=== PATIENT | female | born 1960 | race Caucasian/White ===

== ENCOUNTER 2016-04-12 10:16 | Inpatient (IN) ==
[2016-04-12] MEDS ORDERED: SODIUM CHLORIDE 0.9% 1,000 ML IV STA (10:44)
[2016-04-12] MEDS ORDERED: ASPIRIN 325 MG TABLET PO STA (10:44)
--- NOTE | 2016-04-12 10:47 | EKG Report ---
Stationary ECG Study 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
[2016-04-12] MEDS ORDERED: ASPIRIN 325 MG TABLET ONE (10:50)
[2016-04-12 10:52] LABS: Basophils % 0.4 % (0.0-0.8); Eosinophils # 0.1 10*3/uL (0.0-0.87); Eosinophils % 0.8 % (0.00-10.9); Hematocrit 40.4 VOL% (35.7-47.0); Hemoglobin 13.2 GM/DL (12.0-16.0); Immature Granulocytes % 0.3 %; Immature Granulocytes Absolute 0.03 #; Lymphocytes # 2.2 10*3/uL (1.4-4.0); Lymphocytes % 22.7 % (21.3-54.2); Mean Corpuscular HGB Conc 32.7 GM/DL (32-36); Mean Corpuscular Hemoglobin 30 PG (27-34); Mean Corpuscular Volume 91.4 FL (87-102); Mean Platelet Volume 11.1 FL (9.6-12.0); Monocytes # 0.4 10*3/uL (0.11-0.8); Monocytes % 4.4 % (1.7-12.7); Neutrophils # 6.9 10*3/uL (1.4-7.4); Neutrophils % 71.4 % (38.7-73.9); Platelet Count 227 T/CUMM (130-400); Red Blood Count 4.42 MC/CUMM (3.8-5.5); Red Cell Distribution Width 12.3 % (9.3-17.3); White Blood Count 9.7 T/CUMM (4-12)
--- NOTE | 2016-04-12 10:57 | CT Report ---
CT brain Indication: Headache Comparison: None available Technique: Axial CT imaging of the brain is performed without contrast with 3 mm increments. Findings: No evidence of hemorrhage, mass mass effect midline shift or acute infarct seen. The brain parenchyma attenuation and differentiation appears within normal limits. The ventricles and cisterns are normal in caliber. No cranial or skull base abnormality is identified. Impression: No evidence of abnormality demonstrated. PROCEDURE INTERPRETED AT [facility] DEPARTMENT OF RADIOLOGY Final Report Signed by: Dr. Boyd De Leon
--- NOTE | 2016-04-12 10:58 | Emergency Department Note ---
IPavan Meredith, am scribing for, and in the presence of, Juwan Rasheed MD 10: 43. Kathya Brooks James D, MD, personally performed the services described in this documentation, ascribed by Divina Browne in my presence, and it is both accurate and complete . 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 Pt reports having WV X 3 and states todays pain feels the same as before. Pt also reports some confusion and difficulty thinkin of what she is about to say. Mode of Arrival: Ambulatory Limitations: No Limitations Source: Patient, Family, Old Records Reviewed, RN Notes Reviewed Time Seen by Provider: 04/12/16 10:40 - History of Present Illness HPI Narrative: Pt is a 55 y/o white female reporting to the ED with c/o chest pain, shortness of breath, blurred vision, headache, and difficulty ambulating which onset 1 hour prior to arrival. Her pain is similar to past WV's. She denies any diaphoresis or dysuria. Family states that pt was at work and began to have confusion and "was talking out of her head". Pt is a CAD, WV, HLD, NIDDM, sleep apnea, diverticulitis, osteoporosis, and melanoma. Onset (ago): hour(s) Severity: similar to previous episodes Allergies/Adverse Reactions: Allergies Allergy/AdvReac Type Severity Reaction Status Date / Time nalbuphine [From Nubain] Allergy Severe ANAPHYLAXIS Verified 04/12/16 10:18 codeine AdvReac Intermediate Nausea Verified 04/12/16 10:18 Home Medications: Home Medications Medication Instructions Recorded Confirmed Type ARIPiprazole [Abilify] 15 mg PO DAILY 12/28/14 12/28/14 History Dextroamphetamine/Amphetamine 10 mg PO BID 12/28/14 12/28/14 History [Adderall 10 mg Tablet] Venlafaxine HCl [Effexor XR] 150 mg PO DAILY 12/28/14 12/28/14 History Atorvastatin [Lipitor] 40 mg PO BEDTIME #30 tablet 12/30/14 Rx Clopidogrel [Plavix] 75 mg PO DAILY #30 tablet 12/30/14 Rx Metoprolol Succinate Xl [Toprol Xl] 25 mg PO DAILY #30 tablet 12/30/14 Rx Omeprazole [Prilosec] 20 mg PO DAILY #30 capsule 12/30/14 Rx Review of System - Review of System 12 point system: reviewed and no additional remarkable complaints except as stated - Review of System Constitutional: Present: as per HPI. Absent: diaphoresis Eyes: Present: as per HPI, vision change (blurred) Respiratory: Present: as per HPI, other (SOB) Cardiovascular: Present: as per HPI, chest pain Genitourinary female: Present: as per HPI. Absent: dysuria Neurological: Present: as per HPI, headache, confusion, abnormal gait ( difficulty ambulating) Medical,Surgical,& Family Hx - Medical History Cardio: History of: CAD, WV (in 2006) Neurology: No history of: Seizures HEENT: History of: Eye Problem (WEAR GLASSES) Endocrine: History of: Diabetes Mellitus (NIDDM), Dyslipidemia Respiratory: History of: Obstructive Sleep Apnea Gastrointestinal: History of: Diverticulitis/ Diverticulosis Musculoskeletal: History of: Osteoporosis Other: History of: Miscellaneous Medical Problems (stage 1 melanoma lt arm) - Surgical History Cardiac Surgeries: Sugical HX of: Cardiac Catheterization, Cardiac Surgery ( cabg in 2006) Thoracic Surgeries: Patient denies;: Organ Transplant Abdominal Surgeries: Surgical HX of: Colonoscopy (2011) - Family History Family History: Reports;: Family Cancer (FATHER-BLADDER, KIDNEY, LUNG, AND MELONOMA), Family Diabetes (GRANDFATHERS), Family Heart Disease (FATHER, MOTHER , GRANDPARENTS), Family Hypertension (FATHER, MOTHER, GRANDPARENTS), Family Psychiatric Problems (MOTHER- DEPRESSION) Denies;: Family Stroke (FATHER) - Social History Smoking Status: Never smoker Frequency of Alcohol Use: None Type of Drug Use: None Exam Physical Examination: GENERAL: This is a well-nourished, well-developed white female in no apparent distress. VITAL SIGNS: Temperature: 97.4, Pulse: 67, Respirations: 17, Blood pressure: 120 /80, O2 Saturation: 98 HEENT: Head is normocephalic and atraumatic. Pupils are equally round and reactive to light. Extraocular movement are intact. Oropharynx is benign with moist mucous membranes. NECK: Neck is soft and supple without tenderness. There are no masses. There is no lymphadenopathy. LUNGS: Lungs are clear to auscultation bilaterally. Chest rises symmetrically. There is no chest wall tenderness. CV: Heart is regular rate and rhythm without murmurs, rubs, or gallops. ABDOMEN: Abdomen is soft, non-tender to palpation. There are no abnormal masses palpated. There is no organomegaly. Bowel sounds are present and active. SKIN: Skin is warm and dry. No rash. EXTREMITIES: Patient has full range of motion without tenderness. There is no pedal edema. NEUROLOGIC: Awake, alert, and oriented x4. Cranial nerves II through XII are grossly intact. There are no motorsensory deficits. PSYCHIATRIC: Normal affect. Normal mood. Vital Signs: Vital Signs Temperature 97.4 F L 04/12/16 10:18 Pulse Rate 74 04/12/16 14:30 Respiratory Rate 20 04/12/16 14:30 Blood Pressure 115/79 04/12/16 14:30 O2 Sat by Pulse Oximetry 99 04/12/16 14:30 Course - Consultations Consultation #1: Discussed with Dr. Musa. Patient will be seen in the emergency department. Time: 14:02 Consultation #2: Discussed with hospitalist. Patient will be admitted to their service. Time: 15:28 Results - Labs CBC & BMP: 04/12/16 10:43 04/12/16 10:43 Lab Results: I have reviewed the patients labs Labs: Laboratory Tests 04/12/16 04/12/16 04/12/16 10:43 10:43 10:43 WBC 9.7 RBC 4.42 Hgb 13.2 Hct 40.4 Plt Count 227 INR 1.0 PT Patient/Control Mix 10.7 Circ Anticoag PTT 23.2 D Sodium 139 Potassium 4.0 Chloride 105 Carbon Dioxide 25 BUN 9 Creatinine 1.00 Glucose 247 H AST 44 H Alkaline Phosphatase 121 H Troponin I Globulin 4.2 H Albumin/Globulin Ratio 0.8 L Laboratory Tests 04/12/16 10:43 Troponin I < 0.015 Laboratory Tests 04/12/16 10:43 Urine pH 5.0 Ur Specific [place] 1.010 Urine Glucose (UA) >=500 Urine Urobilinogen < 2.0 H Urine WBC 1 Ur Squamous Epith Cells Occasional Urine Mucus Occasional Laboratory Tests 04/12/16 10:43 Urine Opiates Screen Negative Ur Barbiturates Screen Negative Ur Phencyclidine Scrn Negative U Amphetamine/Methamph Positive H U Benzodiazepines Scrn Negative U Cocaine Metab Screen Negative U Cannabinoids Screen Negative - EKG EKG results: interpreted by ERMD - Impressions EKG: Normal sinus rhythm with a rate of 71, nonspecific ST-T wave changes, normal axis, low voltage QRS. - Diagnostic Findings Procedure: Chest x-ray: image reviewed by me, report reviewed by me (Previous sternotomy with borderline cardiac enlargement without overt decompensation or acute cardiopulmonary pathology radiographically. ), CT: image reviewed by me ( Head CT: No evidence of abnormality. ) Disposition Clinical Impression: Chest pain, Coronary artery disease Case discussed with: patient Condition: Stable
[2016-04-12 11:03] LABS: PT Patient Result 10.7 SECS; Partial Thromboplastin Time 23.2 SECS (0-40)
[2016-04-12 11:12] LABS: Albumin 3.6 G/DL (3.4-5.0); Bilirubin,Total 0.5 MG/DL (0.2-1.0); Calcium 8.7 MG/DL (8.5-10.1); Osmolality,Calculated 283.5 MOS/KG (273-304); Total Protein 7.8 G/DL (6.4-8.3)
[2016-04-12 11:21] LABS: Apearance,Urine CLEAR (Clear); Bilirubin,Urine Negative (Negative); Blood, Urine Negative (Negative); Glucose,Urine (UA) >=500 mg/dL (Negative); Ketones,Urine Negative (Negative); Mucus,Urine Occasional /LPF (Occasional); Nitrite,Urine Negative (Negative); Protein,Urine Negative; Squamous Epithelial Cell,Urine Occasional /HPF (0-10); Urine Color Yellow (Yellow); Urine Urobilinogen < 2.0 EU/DL (0.2-1.0); WBC,Urine 1 /HPF (0-6)
[2016-04-12 11:23] LABS: Barbiturates Screen,Urine Negative (Negative); Benzodiazepines Screen,Urine Negative (Negative); Cannabinoid Screen,Urine Negative (Negative); Opiate Screen,Urine Negative (Negative); Phencyclidine Screen,Urine Negative (Negative)
--- NOTE | 2016-04-12 13:40 | XRay Report ---
Exam: XR chest 1V portable Date: 04/12/2016 10:44 AM Indication: Chest pain Comparison: 12/29/2014 Technical: AP stretcher Findings: Previous sternotomy wires present. External cardiac leads are present. The heart is slightly accentuated. No obvious infiltrate or effusion. No pneumothorax. Mediastinum is intact Impression: 1. Previous sternotomy with borderline cardiac enlargement without overt decompensation or acute cardiopulmonary pathology radiographically PROCEDURE INTERPRETED AT [facility] DEPARTMENT OF RADIOLOGY Final Report Signed by: Dr. Basil White
--- NOTE | 2016-04-12 14:30 | EKG Report ---
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
--- NOTE | 2016-04-12 15:22 | EKG Report ---
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
[2016-04-12] MEDS ORDERED: ALUM/MAG/SIMETH/LIDO VISC 1:1 30 ML BOTTLE PO STA (15:35)
[2016-04-12] MEDS ORDERED: ALUM/MAG/SIMETH/LIDO VISC 1:1 30 ML BOTTLE PO ONE (15:41)
[2016-04-12] MEDS ORDERED: GLUCAGON 1 MG VIAL IM PRN (16:09)
[2016-04-12] MEDS ORDERED: DEXTROSE 50% 25 GM/50 ML VIAL IV PRN (16:09)
[2016-04-12] MEDS ORDERED: LABETALOL 20 MG/4 ML SYRINGE IV PRN (16:09)
--- NOTE | 2016-04-12 16:28 | CT Report ---
Exam: CT chest PE study The total DLP is 356 mGy*cm. Date: 04/12/2016 3:37 PM Indication: Shortness of breath Comparison: Prior chest CT 02/08/2015 Technical: Images were obtained from the thoracic inlet through the lung bases with 80 cc of Omnipaque 350 with axial and coronal imaging available for review. Findings: Pulmonary arteries: Pulmonary arteries are patent and well-opacified with no filling defects to suggest pulmonary emboli. Mediastinum/vessels/lymph nodes: Heart and great vessels appear unremarkable. There is no evidence of pericardial effusion. The aorta and great vessels appear widely patent. There is no adenopathy in the chest. Lungs: The lungs are clear. There is no pneumothorax or pleural effusion. There is no focal consolidation. No suspicious pulmonary nodules or masses are identified. Thyroid: Thyroid gland appears within normal limits. No acute abnormality is identified within the visualized upper abdomen. BONES: No acute or suspicious appearing osseous abnormalities are identified. Median sternotomy wiring is noted. Impression: No evidence of pulmonary emboli. No other acute abnormality in the chest or upper abdomen to explain patient's symptoms. PROCEDURE INTERPRETED AT [facility] DEPARTMENT OF RADIOLOGY Final Report Signed by: Charlie Anderson
--- NOTE | 2016-04-12 16:35 | Hospitalist History & Physical ---
History of Present Illness Chief complaint: room tilting History of present illness: Ms. Ferrer is a 55 year old female who had abrupt onset of intelligible but nonsensical speech and the feeling of the room tilting. She said she leaned to the left and felt weak. This happened at work. She started saying stuff about influenza A, out of context of the conversation. Her family brought her to the ER and report that she could not lift her left leg well when she got to ER and needed max assist on entering the ER. The patient describes the feeling of words not forming sentences like she wants them to. Her family says that for the last couple of days she has seemed to need time to compose her answers to questions. She has had some chest pain which is her baseline. She denies shortness of breath. She was seen by cards in ER because of the chest pain with history of CAD and CABG. Cath last year looked ok per Dr Gentile. Dr Smith recommended serial troponins, and will follow along with us. A/P: 1)weakness in right arm and left leg and word finding problems- brain MRI, carotids and echo. PT, OT, ST. On asa, statin. consult to neuro. 2)CAD- r/o DE with serial troponins. On lovenox at 1mg/kg q12 until ruled out. continue home meds. put on telemetry. PE ruled out. 3)DM- SSI for now, hold metformin 4)psych- continue antidepressants, abilify. 5)high cholesterol- LDL 100, continue statin. Home Medications Medication Instructions Recorded Confirmed Type ARIPiprazole [Abilify] 15 mg PO DAILY 12/28/14 12/28/14 History Dextroamphetamine/Amphetamine 10 mg PO BID 12/28/14 12/28/14 History [Adderall 10 mg Tablet] Venlafaxine HCl [Effexor XR] 150 mg PO DAILY 12/28/14 12/28/14 History Atorvastatin [Lipitor] 40 mg PO BEDTIME #30 tablet 12/30/14 Rx Clopidogrel [Plavix] 75 mg PO DAILY #30 tablet 12/30/14 Rx Metoprolol Succinate Xl [Toprol Xl] 25 mg PO DAILY #30 tablet 12/30/14 Rx Omeprazole [Prilosec] 20 mg PO DAILY #30 capsule 12/30/14 Rx Allergies Allergy/AdvReac Type Severity Reaction Status Date / Time nalbuphine [From Nubain] Allergy Severe ANAPHYLAXIS Verified 04/12/16 10:18 codeine AdvReac Intermediate Nausea Verified 04/12/16 10:18 Medical,Surgical,& Family Hx - Medical History Cardio: History of: CAD, [place] (in 2006) Neurology: No history of: Seizures HEENT: History of: Eye Problem (WEAR GLASSES) Endocrine: History of: Diabetes Mellitus (NIDDM), Dyslipidemia Respiratory: History of: Obstructive Sleep Apnea Gastrointestinal: History of: Diverticulitis/ Diverticulosis Musculoskeletal: History of: Osteoporosis Other: History of: Miscellaneous Medical Problems (stage 1 melanoma lt arm) - Surgical History Cardiac Surgeries: Sugical HX of: Cardiac Catheterization, Cardiac Surgery ( cabg in 2006) Thoracic Surgeries: Patient denies;: Organ Transplant Abdominal Surgeries: Surgical HX of: Colonoscopy (2011) - Family History Family History: Reports;: Family Cancer (FATHER-BLADDER, KIDNEY, LUNG, AND MELONOMA), Family Diabetes (GRANDFATHERS), Family Heart Disease (FATHER, MOTHER , GRANDPARENTS), Family Hypertension (FATHER, MOTHER, GRANDPARENTS), Family Psychiatric Problems (MOTHER- DEPRESSION) Denies;: Family Stroke (FATHER) - Social History Smoking Status: Former smoker (44years) Frequency of Alcohol Use: Rarely Type of Drug Use: None Marital Status: Functional capacity: independent ambulation 12 point system: reviewed and no additional remarkable complaints except as stated Exam - Constitutional Vitals: Period Temp Pulse Resp BP Sys/Steward Pulse Ox Last 24 Hr 97.4 F-97.4 F 68-87 17-20 114-136/71-89 96-100 General appearance: no acute distress, over weight - Head Head exam: Present: normocephalic, atraumatic - Respiratory Respiratory exam: Present: clear to auscultation bilaterally - Cardiovascular Cardiovascular exam: Present: regular rate and rhythm - GI/Abdominal GI/Abdominal exam: Present: normal bowel sounds, soft. Absent: tenderness - Extremities Exam Extremities exam: Absent: edema - Neurological Exam Neurological exam: Present: alert, oriented X3, CN II-XII intact, motor sensory deficit (right arm weak and left leg weak reflexes sluggish sensation intact.), other (clear word finding problems) - Skin Skin exam: Present: warm, dry Results - Labs CBC & BMP: 04/12/16 10:43 04/12/16 10:43 Lab Results: I have reviewed the past 24 hour labs
[2016-04-12 16:36] LABS: Risk Ratio 3.81; VLDL CHOLESTEROL 28.8 MG/DL
[2016-04-12] MEDS ORDERED: INFLUENZA VIRUS VACCINE 0.5 ML SYRINGE IM ONE (17:14)
[2016-04-12] MEDS: ENOXAPARIN 80 MG/0.8 ML SYRINGE SUBCUT SCH (18:07)
[2016-04-12] MEDS: PANTOPRAZOLE 40 MG TABLET PO SCH (18:07)
[2016-04-12] MEDS: NITROGLYCERIN 2% OINT 1 INCH/GM PACK TOP SCH (18:07)
[2016-04-12] MEDS: INSULIN LISPRO 100 UNIT/ML SUBCUT SCH ×2 (18:07→21:18)
[2016-04-12] MEDS ORDERED: AMPHETAMINE PO SCH (21:00)
[2016-04-12] MEDS ORDERED: DEXTROAMPHETAMINE PO SCH (21:00)
--- NOTE | 2016-04-12 21:43 | Ultrasound Report ---
Exam: US carotid duplex BI Date: 04/12/2016 4:12 PM Indication: Stroke Technique: Duplex scan of the bilateral carotid arteries using B-mode/grayscale imaging and Doppler spectral analysis and color flow. Findings: Right Flow velocities centimeters per second Common carotid artery: 68 Proximal ICA: 63 Distal ICA: 78 External carotid artery: 123 Vertebral artery: 46 with antegrade flow ICA/CCA ratio: 1.2 Measurements in millimeters Distal ICA: 4.7 Left: Flow velocities centimeters per second Common carotid artery: 70 Proximal ICA: 69 Distal ICA: 82 External carotid artery: 99 Vertebral artery: 49 with antegrade flow ICA/CCA ratio: 1.2 Measurements in millimeters Distal ICA: 5.0 No significant atherosclerotic plaque or luminal stenosis is evident within either internal carotid artery. Color flow is present in all visualized vessels with Doppler analysis. Impression: No significant atherosclerotic disease or luminal stenosis within either internal carotid artery by ultrasound criteria. Today studies were performed utilizing indirect NASCET criteria The ultrasound images were stored and captured PROCEDURE INTERPRETED AT [facility] DEPARTMENT OF RADIOLOGY Final Report Signed by: Charlie Anderson
[2016-04-12] MEDS: ROSUVASTATIN 20 MG TABLET PO SCH (21:46)
[2016-04-13] MEDS: NITROGLYCERIN 2% OINT 1 INCH/GM PACK TOP SCH ×4 (03:14→17:14)
[2016-04-13] MEDS: ENOXAPARIN 80 MG/0.8 ML SYRINGE SUBCUT SCH ×2 (05:33→15:42)
[2016-04-13] MEDS: INSULIN LISPRO 100 UNIT/ML SUBCUT SCH ×4 (07:53→21:32)
[2016-04-13 08:12] LABS: Basophils % 0.4 % (0.0-0.8); Eosinophils # 0.1 10*3/uL (0.0-0.87); Eosinophils % 1.2 % (0.00-10.9); Hematocrit 39.2 VOL% (35.7-47.0); Hemoglobin 12.8 GM/DL (12.0-16.0); Immature Granulocytes % 0.2 %; Immature Granulocytes Absolute 0.02 #; Lymphocytes # 2.1 10*3/uL (1.4-4.0); Lymphocytes % 24.9 % (21.3-54.2); Mean Corpuscular HGB Conc 32.7 GM/DL (32-36); Mean Corpuscular Hemoglobin 30 PG (27-34); Monocytes # 0.3 10*3/uL (0.11-0.8); Neutrophils # 5.8 10*3/uL (1.4-7.4); Neutrophils % 69.3 % (38.7-73.9); Platelet Count 228 T/CUMM (130-400); Red Blood Count 4.26 MC/CUMM (3.8-5.5); Red Cell Distribution Width 12.4 % (9.3-17.3); White Blood Count 8.3 T/CUMM (4-12)
--- NOTE | 2016-04-13 08:41 | Cardiology Consult Note ---
Foster Brooks Rachel, RN, am scribing for, and in the presence of, Barbara Gentile MD 08:41. Assessment and Plan (1) Chest pain Status: Acute Assessment and plan: EKG is nonspecific and does not have any acute findings. Troponin is negative 1 check. We will continue to monitor these. D-dimer and CT chest have been ordered to rule out PE. Nitropaste, Protonix, and GI cocktail have all been initiated. This could also be secondary to worsening CAD. Will consider further workup of this after neuro workup is complete and PE has been ruled out. Current Visit: Yes (2) Coronary artery disease Status: Chronic Assessment and plan: She underwent left heart cath December 2014 was noted to have severe single- vessel coronary artery disease with 100% ostial occlusion of the left anterior descending artery with patent SORENSEN to LAD graft, EF of 65% noted. Current Visit: Yes (3) Diabetes mellitus Status: Chronic Assessment and plan: Defer management to hospitalist. Current Visit: No (4) Hyperlipidemia Status: Chronic Assessment and plan: Lipid panel ordered. Current Visit: No (5) Hypertension Status: Chronic Assessment and plan: This is currently well controlled. Current Visit: No (6) Unsteady gait Status: Acute Assessment and plan: Neurology has been consulted. CT head is negative for acute abnormalities. Current Visit: Yes (7) Hx of CABG Status: Chronic Current Visit: Yes (8) Shortness of breath on exertion Status: Acute Assessment and plan: chest CT and D-dimer has been ordered to rule out PE. This could also be secondary to worsening CAD. Will consider further workup of this after neuro workup is complete and PE has been ruled out. Current Visit: Yes History of Present Illness - Data of Consult Patient: known to practice within the last 3 years Consult date: 04/12/16 Requesting Physician: Juwan Rasheed Primary care physician: Barbara Gentile - Consult Narrative Reason for consult: Chest pain and shortness of breath History of present illness: Ms. Ferrer is a 55 year old female with known coronary artery disease, routinely followed by Dr. Gentile. She presented to the ER today for further evaluation of weakness, confusion, gait instability, chest pain and shortness of breath. She has risk factors significant for coronary artery disease, diabetes, family history of CAD, hyperlipidemia, hypertension, obesity and sedentary lifestyle. Reports that she has never smoked in the past. She has a past medical history of anxiety. She has a surgical history of CABG in 2001 at [facility]. She underwent left heart cath December 2014 and was noted to have severe single-vessel coronary artery disease with 100% ostial occlusion of the left anterior descending artery with patent SORENSEN to LAD graft, EF of 65% noted. She has had an echo in December 2014 which revealed normal LV systolic function with a ejection fraction of 60%, grade 1 out of 4 diastolic dysfunction, trace pulmonic insufficiency and moderate concentric left ventricular hypertrophy. She was in her usual state of health until this morning when she reports that her "world was tilted." She tells me that her gait became unsteady and she became confused and unable to form sentences. Her coworkers came to assist her, sat her down and called her daughter to come pick her up. Her coworkers checked her blood sugar while waiting on her daughter to arrive and it was noted to be 359. While getting in the car she began to experience chest discomfort and shortness of breath. They then presented to the ER for further evaluation of this. She describes her chest pain as a constant, dull aching pain that radiates to her left arm. She rates this pain as a 7/10. This is also associated with shortness of breath, nausea and palpitations. Patient denies diaphoresis, fever, chills, abdominal pain, melena and lower extremity edema. She tells me that this pain feels different from her previous episodes of angina. Patient also reports that she has been compliant with all of her blood pressure medications. Of note, she does report a worsening dyspnea on exertion for the past week. She tells me that this is worse at night when she lays down. She also tells me that she has experienced mild episodes of chest discomfort for the past several days. She is unable to identify any aggravating or alleviating factors at this time. Patient was seen and examined in the ER. She is awake and alert and able to answer all questions appropriately. She seems to be back to her baseline neurologically. However, she continues to have gait instability. Patient is able to stand and bear weight. However, when trying to walk she becomes very unstable. Upon exam, no hemiplegia is noted. Patient has normal smile and facial expressions. Patient underwent head CT in the ER which was negative for any acute abnormalities. She continues to complain of chest pain and shortness of breath. She reports that this has been constant since approximately 9:15 this morning. This pain is not reproducible. Her cardiac biomarkers are negative at this time. We will continue to monitor these. Her EKG is nonspecific and does not reveal any acute findings. She is currently in sinus rhythm. CC: - Home Medications and Allergies Home Medications: Home Medications Medication Instructions Recorded Confirmed Type ARIPiprazole [Abilify] 15 mg PO DAILY 12/28/14 04/12/16 History Dextroamphetamine/Amphetamine 10 mg PO BID 12/28/14 04/12/16 History [Adderall 10 mg Tablet] Venlafaxine HCl [Effexor XR] 150 mg PO DAILY 12/28/14 04/12/16 History Atorvastatin [Lipitor] 40 mg PO BEDTIME #30 tablet 12/30/14 04/12/16 Rx Clopidogrel [Plavix] 75 mg PO DAILY #30 tablet 12/30/14 04/12/16 Rx Metoprolol Succinate Xl [Toprol Xl] 25 mg PO DAILY #30 tablet 12/30/14 04/12/16 Rx Omeprazole [Prilosec] 20 mg PO DAILY #30 capsule 12/30/14 04/12/16 Rx Benztropine Mesylate 1 mg PO BEDTIME 04/12/16 04/12/16 History Glimepiride 4 mg PO BIDAC 04/12/16 04/12/16 History Temazepam [Restoril] 15 mg PO BEDTIME 04/12/16 04/12/16 History Allergies/Adverse Reactions: Allergies Allergy/AdvReac Type Severity Reaction Status Date / Time nalbuphine [From Nubain] Allergy Severe ANAPHYLAXIS Verified 04/12/16 10:18 codeine AdvReac Intermediate Nausea Verified 04/12/16 10:18 - Constitutional Constitutional: Present: headache(s), weakness. Absent: chills, fever(s) - Cardiovascular Cardiovascular: Present: as per HPI, dyspnea on exertion, radiating jaw, neck or arm pain, lightheadedness, orthopnea, palpitations. Absent: claudication, diaphoresis - Respiratory Respiratory: Present: dyspnea on exertion. Absent: cough, wheezing, snoring, pain on inspiration, change in phlegm color - Gastrointestinal Gastrointestinal: Present: nausea. Absent: abdominal pain, change in bowel habits, coffee ground emesis, diarrhea, heartburn, hematemesis, hematochezia, loose stools, melena, vomiting - Neurological Neurological: Present: abnormal gait, confusion, disequilibrium, headache(s) Medical,Surgical,& Family Hx - Medical History Cardio: History of: CAD, Hypertension, ID (in 2006) Psychological: History of: Anxiety Disorders Neurology: No history of: Seizures HEENT: History of: Eye Problem (WEAR GLASSES) Endocrine: History of: Diabetes Mellitus (NIDDM), Dyslipidemia Respiratory: History of: Obstructive Sleep Apnea Gastrointestinal: History of: Diverticulitis/ Diverticulosis, GERD Musculoskeletal: History of: Osteoporosis Other: History of: Miscellaneous Medical Problems (stage 1 melanoma lt arm) - Surgical History Cardiac Surgeries: Sugical HX of: Cardiac Catheterization, Cardiac Surgery ( cabg in 2006) Thoracic Surgeries: Patient denies;: Organ Transplant Abdominal Surgeries: Surgical HX of: Colonoscopy (2011) - Family History Family History: Reports;: Family Cancer (FATHER-BLADDER, KIDNEY, LUNG, AND MELONOMA), Family Diabetes (GRANDFATHERS), Family Heart Disease (FATHER, MOTHER , GRANDPARENTS), Family Hypertension (FATHER, MOTHER, GRANDPARENTS), Family Psychiatric Problems (MOTHER- DEPRESSION) Denies;: Family Stroke (FATHER) - Social History Smoking Status: Never smoker Frequency of Alcohol Use: None Type of Drug Use: None Physical Examination Vital Signs Temp Pulse Resp BP Pulse Ox 97.4 F L 87 17 120/80 98 04/12/16 10:18 04/12/16 10:18 04/12/16 10:18 04/12/16 10:18 04/12/16 10:18 General: Present: No Apparent Distress Neck: Present: Supple Neck, Midline Trachea, No JVD/HJR, No Masses, No Bruit, No Lymphadenopathy, No Thyromegaly Cardiac: Present: Reg Rate and Rhythm, Regular Rate, Regular Rhythm, S1/S2, No Murmur. Absent: Gallop Lungs: Present: Normal Exam, Clear Ascult./Percussion, Normal Breath Sounds, No Wheeze, Rales, Rhonchi Abdomen: Present: Soft, Active Bowel Sounds, No Masses, No Pulsations/Bruits, Non-Tender. Absent: Firm, Distended Skin: Present: Clear. Absent: Rash, Suspicious Lesions, Ulceration Gait: Present: Poor Gait, Other (Unstable gait ) Extremities: Present: Normal Gait, No Clubbing, No Cyanosis, No Edema, Normal Upper Extr. Pulses, Normal Lower Extr. Pulses Result/EKG - Labs CBC & BMP: 04/13/16 08:02 04/12/16 10:43 Lab Results: I have reviewed the past 24 hour labs Labs: Laboratory Results - last 24 hr 04/12/16 04/12/16 04/12/16 10:43 10:43 10:43 WBC RBC Hgb Hct MCV MCH MCHC RDW Plt Count MPV Neut % (Auto) Lymph % (Auto) [place] % (Auto) Eos % (Auto) Baso % (Auto) Neut # (Auto) Lymph # (Auto) [place] # (Auto) Eos # (Auto) Baso # (Auto) Immature Gran % Nucleated RBC % Immature Gran # Nucleated RBCs # INR 1.0 PT Patient/Control Mix 10.7 Circ Anticoag PTT 23.2 D Sodium 139 Potassium 4.0 Chloride 105 Carbon Dioxide 25 Anion Gap 13.0 BUN 9 Creatinine 1.00 GFR Calculation 69 BUN/Creatinine Ratio 9.00 Glucose 247 H Calculated Osmolality 283.5 Calcium 8.7 Total Bilirubin 0.50 AST 44 H ALT 39 Alkaline Phosphatase 121 H Troponin I Total Protein 7.8 Albumin 3.6 Globulin 4.2 H Albumin/Globulin Ratio 0.8 L Urine Color Yellow Urine Appearance Clear Urine pH 5.0 Ur Specific [place] 1.010 Urine Protein Negative Urine Glucose (UA) >=500 Urine Ketones Negative Urine Blood Negative Urine Nitrate Negative Urine Bilirubin Negative Urine Urobilinogen < 2.0 H Urine Leukocytes Negative Urine WBC 1 Ur Squamous Epith Cells Occasional Urine Mucus Occasional Ur Culture Indicated? Not indicated Urine Opiates Screen Ur Barbiturates Screen Ur Phencyclidine Scrn U Amphetamine/Methamph U Benzodiazepines Scrn U Cocaine Metab Screen U Cannabinoids Screen 04/12/16 04/12/16 04/12/16 10:43 10:43 10:43 WBC 9.7 RBC 4.42 Hgb 13.2 Hct 40.4 MCV 91.4 MCH 30 MCHC 32.7 RDW 12.3 Plt Count 227 MPV 11.1 Neut % (Auto) 71.4 Lymph % (Auto) 22.7 [place] % (Auto) 4.4 Eos % (Auto) 0.8 Baso % (Auto) 0.4 Neut # (Auto) 6.9 Lymph # (Auto) 2.2 [place] # (Auto) 0.4 Eos # (Auto) 0.1 Baso # (Auto) 0.0 Immature Gran % 0.3 Nucleated RBC % 0.0 Immature Gran # 0.03 Nucleated RBCs # 0.00 INR PT Patient/Control Mix Circ Anticoag PTT Sodium Potassium Chloride Carbon Dioxide Anion Gap BUN Creatinine GFR Calculation BUN/Creatinine Ratio Glucose Calculated Osmolality Calcium Total Bilirubin AST ALT Alkaline Phosphatase Troponin I < 0.015 Total Protein Albumin Globulin Albumin/Globulin Ratio Urine Color Urine Appearance Urine pH Ur Specific [place] Urine Protein Urine Glucose (UA) Urine Ketones Urine Blood Urine Nitrate Urine Bilirubin Urine Urobilinogen Urine Leukocytes Urine WBC Ur Squamous Epith Cells Urine Mucus Ur Culture Indicated? Urine Opiates Screen Negative Ur Barbiturates Screen Negative Ur Phencyclidine Scrn Negative U Amphetamine/Methamph Positive H U Benzodiazepines Scrn Negative U Cocaine Metab Screen Negative U Cannabinoids Screen Negative - EKG EKG results: interpreted by me, sinus rhythm (With nonspecific ST segment and T- wave changes) ISeferino Jennifer, MD, personally performed the services described in this documentation, ascribed by Sommer Hutchison RN in my presence, and it is both accurate and complete [id number] .
[2016-04-13 08:48] LABS: Calcium 8.5 MG/DL (8.5-10.1); Osmolality,Calculated 284.8 MOS/KG (273-304); Potassium 4.1 MMOL/L (3.5-5.1)
[2016-04-13] MEDS: CLOPIDOGREL 75 MG TABLET PO SCH (09:48)
[2016-04-13] MEDS: VENLAFAXINE XR 75 MG CAPSULE PO SCH (09:48)
[2016-04-13] MEDS: ASPIRIN 325 MG TABLET PO SCH (09:48)
[2016-04-13] MEDS: ARIPiprazole 5 MG TABLET PO SCH (09:49)
[2016-04-13] MEDS: METOPROLOL SUCCINATE XL 25 MG TABLET PO SCH (09:49)
[2016-04-13] MEDS: PANTOPRAZOLE 40 MG TABLET PO SCH (09:49)
[2016-04-13] MEDS ORDERED: LORazepam 2 MG/1 ML VIAL IV ONE (10:30)
--- NOTE | 2016-04-13 12:18 | Magnetic Resonance Report ---
Exam: MR head/brain wo con Date: 04/13/2016 4:12 PM Comparison: CT brain 04/12/2016 Indication: Right arm left leg weakness Technical: 1.5 Malika magnet Axial T1 pre-and ADC, DWI, FLAIR, gradient echo and FSE T2 Sagittal T1 precontrast, FLAIR Coronal FSE T2 Contrast: 0 cc Dotarem Findings: Exam reveals no acute ADC/ diffusion imaging abnormality. The brainstem, cerebellum exhibit normal signal characteristics. The cerebral hemispheres exhibit normal signal characteristics. The corpus callosum is unremarkable. The ventricles are unremarkable. Normal flow voids in the vascular structures present. The seventh and eighth cranial nerves and cerebral pontine angles are intact. The pituitary gland, infundibulum and optic chiasm are intact. The paranasal sinuses exhibit normal signal characteristics. The mastoid sinuses are unremarkable. The globes and intra-and extraconal spaces are unremarkable. Impression: 1. No acute hemorrhage, infarction or mass effect. Normal MRI of the brain PROCEDURE INTERPRETED AT [facility] DEPARTMENT OF RADIOLOGY Final Report Signed by: Dr. Basil White
--- NOTE | 2016-04-13 13:37 | Discharge Summary ---
Hospital Course - Hospital Course Hospital Course: Mrs Rhodes had onset of altered speech, right arm and left leg weakness yesterday. Those symptoms have completely resolved this morning and she requests discharge. Her MRI and carotids showed no acute abnormality. This episode is consistent with TIA. She is on plavix, statin. Will add aspirin. consider anticoagulation. She will follow up with Dr Torres in the clinic as he is out of town today. She denies chest pain or shortness of breath. Dr Gentile will see her before she goes. She will see her PCP and DR Torres and Dr Gentile in follow up. Diagnosis - Discharge Diagnosis (1) TIA (transient ischemic attack) Status: Acute (2) Hypertension Status: Chronic (3) Hyperlipidemia Status: Chronic (4) Diabetes mellitus Status: Chronic (5) Dizziness Status: Acute (6) Chest pain Status: Acute (7) Coronary artery disease Status: Chronic (8) Unsteady gait Status: Acute (9) Hx of CABG Status: Chronic Specialty Discharge - Follow Up or Referrals Follow up with: Barbara Gentile MD [Physician] - Your, PCP [Other] - 1 Week Discharge Plan - Discharge Data Disposition: Disch To Home/Self Care Condition at Discharge: Stable Discharge Diet: diabetic diet, heart healthy Activity: resume usual activities as tolerated - Discharge Medications New Aspirin Chew Tab 81 mg PO DAILY #100 tablet Continue Venlafaxine HCl [Effexor XR] 150 mg PO DAILY ARIPiprazole [Abilify] 15 mg PO DAILY Dextroamphetamine/Amphetamine [Adderall 10 mg Tablet] 10 mg PO BID Atorvastatin [Lipitor] 40 mg PO BEDTIME #30 tablet Clopidogrel [Plavix] 75 mg PO DAILY #30 tablet Omeprazole [Prilosec] 20 mg PO DAILY #30 capsule Metoprolol Succinate Xl [Toprol Xl] 25 mg PO DAILY #30 tablet Glimepiride 4 mg PO BIDAC Benztropine Mesylate 1 mg PO BEDTIME Temazepam [Restoril] 15 mg PO BEDTIME - Follow Up or Referral - Forms/Instructions Exam - Constitutional Vitals: Period Temp Pulse Resp BP Sys/Steward Pulse Ox Last 24 Hr 96.8 F-98.6 F 61-82 16-20 106-136/57-81 92-98 General appearance: no acute distress, over weight - Head Head exam: Present: normocephalic, atraumatic - Eye Eye exam: Present: EOMI. Absent: scleral icterus - ENT ENT exam: Present: normal oropharynx - Neck Neck exam: Present: normal inspection - Respiratory Respiratory exam: Present: clear to auscultation bilaterally - Cardiovascular Cardiovascular exam: Present: regular rate and rhythm - GI/Abdominal GI/Abdominal exam: Present: normal bowel sounds, soft. Absent: tenderness - Extremities Exam Extremities exam: Absent: edema - Neurological Exam Neurological exam: Present: alert, oriented X3 (no speech or word finding problems this morning.), CN II-XII intact. Absent: motor sensory deficit - Skin Skin exam: Present: warm, dry Discharge Results Labs on day of discharge: Labs from last 24 hours 04/13/16 04/13/16 04/13/16 08:02 08:02 07:16 WBC 8.3 RBC 4.26 Hgb 12.8 Hct 39.2 MCV 92.0 MCH 30 MCHC 32.7 RDW 12.4 Plt Count 228 MPV 11.0 Neut % (Auto) 69.3 Lymph % (Auto) 24.9 [place] % (Auto) 4.0 Eos % (Auto) 1.2 Baso % (Auto) 0.4 Neut # (Auto) 5.8 Lymph # (Auto) 2.1 [place] # (Auto) 0.3 Eos # (Auto) 0.1 Baso # (Auto) 0.0 Immature Gran % 0.2 Nucleated RBC % 0.0 Immature Gran # 0.02 Nucleated RBCs # 0.00 Sodium 144 Potassium 4.1 Chloride 108 H Carbon Dioxide 28 Anion Gap 12.1 BUN 8 Creatinine 0.90 GFR Calculation 78 BUN/Creatinine Ratio 8.00 Glucose 125 H POC Glucose 117 H Calculated Osmolality 284.8 Calcium 8.5 Troponin I 04/12/16 04/12/16 04/12/16 21:19 20:20 17:48 WBC RBC Hgb Hct MCV MCH MCHC RDW Plt Count MPV Neut % (Auto) Lymph % (Auto) [place] % (Auto) Eos % (Auto) Baso % (Auto) Neut # (Auto) Lymph # (Auto) [place] # (Auto) Eos # (Auto) Baso # (Auto) Immature Gran % Nucleated RBC % Immature Gran # Nucleated RBCs # Sodium Potassium Chloride Carbon Dioxide Anion Gap BUN Creatinine GFR Calculation BUN/Creatinine Ratio Glucose POC Glucose 146 H Calculated Osmolality Calcium Troponin I < 0.015 < 0.015 04/12/16 17:43 WBC RBC Hgb Hct MCV MCH MCHC RDW Plt Count MPV Neut % (Auto) Lymph % (Auto) [place] % (Auto) Eos % (Auto) Baso % (Auto) Neut # (Auto) Lymph # (Auto) [place] # (Auto) Eos # (Auto) Baso # (Auto) Immature Gran % Nucleated RBC % Immature Gran # Nucleated RBCs # Sodium Potassium Chloride Carbon Dioxide Anion Gap BUN Creatinine GFR Calculation BUN/Creatinine Ratio Glucose POC Glucose 63 L Calculated Osmolality Calcium Troponin I DS: Provider Date of admission: 04/12/16 15:38 Primary care physician: . No PCP Attending physician on admission: Kady King MD Consults: 04/12/16 16:09 Consult to Case Mgmt/Social Srvs [CONS] Routine Reason for Case Mgmt/Social Srvs: Discharge Planning Consult to Occupational Therapy [CONS] Routine Reason for Occupational Therapy: Evaluate and Treat Consult Comment: Stroke Consult to Physical Therapy [CONS] Routine Reason for Physical Therapy: Evaluate and Treat Consult Comment: stroke 04/12/16 17:44 Consult to Pharmacy [CONS] Routine Reason for Pharmacy Consult: Adjust Meds Renal Funct Discharging clinician: Kady King MD
[2016-04-13 15:21] LABS: HIV Antigen/Antibody Result Nonreactive (Nonreactive)
--- NOTE | 2016-04-13 17:43 | Cardiology Progress Note ---
Ramon Brooks Vanessa RN, am scribing for, and in the presence of, Barbara Gentile MD 17:43. Assessment and Plan - Time spent with patient Time spent with patient: Less than 30 minutes (1) Chest pain Status: Acute Assessment and plan: EKG is nonspecific and does not have any acute findings. Serial troponin levels are negative. D-dimer negative and CT chest negative for PE or other finding to explain symptoms. This could also be secondary to worsening CAD. Consider further workup once neuro evaluation complete. Current Visit: Yes (2) Shortness of breath on exertion Status: Acute Assessment and plan: CT chest and D-dimer both negative. Possibly secondary to worsening of CAD. Consider further workup once neuro evaluation complete. Current Visit: Yes (3) Unsteady gait Status: Acute Assessment and plan: CT head and carotid doppler US negative for acute findings. MRI brain today and results pending. Awaiting neurology consult. Current Visit: Yes (4) Coronary artery disease Status: Chronic Assessment and plan: Left heart catheterization in December 2014 revealed severe single-vessel coronary artery disease with 100% ostial occlusion of the left anterior descending artery with patent SORENSEN graft to LAD. Ejection fraction 65%. Current Visit: Yes (5) Hx of CABG Status: Chronic Current Visit: Yes (6) Diabetes mellitus Status: Chronic Assessment and plan: Continue current plan of care. Defer management to hospitalist. Current Visit: No (7) Hyperlipidemia Status: Chronic Assessment and plan: Fasting lipid panel reviewed and is normal. Continue Crestor. Current Visit: No (8) Hypertension Status: Chronic Assessment and plan: Well controlled at this time. Continue current medication regimen. Current Visit: No Cardiology - PN: Subj Interval history: Sleeping soundly without acute distress noted. Family at bedside. MRI earlier this morning, and results are pending. Rouses easily and denies CP. Does say she is still somewhat short of breath and that it is slightly worsened with ambulation to bathroom and back to bed. SaO2 noted 92% on room air. Labs reviewed and are unremarkable. Sinus rhythm with heart rate 60's per tele monitoring. No overt arrhythmia or ectopy noted. Exam (Progress Note) - Constitutional Vitals: Period Temp Pulse Resp BP Sys/Steward Pulse Ox Last 24 Hr 96.8 F-98.6 F 61-82 16-20 106-136/57-81 92-98 Exam: General: Present: No Apparent Distress Neck: Present: Supple Neck, Midline Trachea, No JVD/HJR, No Masses, No Bruit, No Lymphadenopathy, No Thyromegaly Cardiac: Present: Reg Rate and Rhythm, Regular Rate, Regular Rhythm, S1/S2, No Murmur. Absent: Gallop Lungs: Present: Normal Exam, Clear Ascult./Percussion, Normal Breath Sounds, No Wheeze, Rales, Rhonchi Abdomen: Present: Soft, Active Bowel Sounds, No Masses, No Pulsations/Bruits, Non-Tender. Absent: Firm, Distended Skin: Present: Clear. Absent: Rash, Suspicious Lesions, Ulceration Gait: Present: Poor Gait, Other (Unstable gait ) Extremities: Present: Normal Gait, No Clubbing, No Cyanosis, No Edema, Normal Upper Extr. Pulses, Normal Lower Extr. Pulses Result/EKG - Labs CBC & BMP: 04/13/16 08:02 04/13/16 08:02 Lab Results: I have reviewed the past 24 hour labs Labs: Laboratory Results - last 24 hr 04/12/16 04/12/16 04/12/16 17:43 17:48 20:20 WBC RBC Hgb Hct MCV MCH MCHC RDW Plt Count MPV Neut % (Auto) Lymph % (Auto) [place] % (Auto) Eos % (Auto) Baso % (Auto) Neut # (Auto) Lymph # (Auto) [place] # (Auto) Eos # (Auto) Baso # (Auto) Immature Gran % Nucleated RBC % Immature Gran # Nucleated RBCs # Sodium Potassium Chloride Carbon Dioxide Anion Gap BUN Creatinine GFR Calculation BUN/Creatinine Ratio Glucose POC Glucose 63 L 146 H Calculated Osmolality Calcium Troponin I < 0.015 04/12/16 04/13/16 04/13/16 21:19 07:16 08:02 WBC 8.3 RBC 4.26 Hgb 12.8 Hct 39.2 MCV 92.0 MCH 30 MCHC 32.7 RDW 12.4 Plt Count 228 MPV 11.0 Neut % (Auto) 69.3 Lymph % (Auto) 24.9 [place] % (Auto) 4.0 Eos % (Auto) 1.2 Baso % (Auto) 0.4 Neut # (Auto) 5.8 Lymph # (Auto) 2.1 [place] # (Auto) 0.3 Eos # (Auto) 0.1 Baso # (Auto) 0.0 Immature Gran % 0.2 Nucleated RBC % 0.0 Immature Gran # 0.02 Nucleated RBCs # 0.00 Sodium Potassium Chloride Carbon Dioxide Anion Gap BUN Creatinine GFR Calculation BUN/Creatinine Ratio Glucose POC Glucose 117 H Calculated Osmolality Calcium Troponin I < 0.015 04/13/16 08:02 WBC RBC Hgb Hct MCV MCH MCHC RDW Plt Count MPV Neut % (Auto) Lymph % (Auto) [place] % (Auto) Eos % (Auto) Baso % (Auto) Neut # (Auto) Lymph # (Auto) [place] # (Auto) Eos # (Auto) Baso # (Auto) Immature Gran % Nucleated RBC % Immature Gran # Nucleated RBCs # Sodium 144 Potassium 4.1 Chloride 108 H Carbon Dioxide 28 Anion Gap 12.1 BUN 8 Creatinine 0.90 GFR Calculation 78 BUN/Creatinine Ratio 8.00 Glucose 125 H POC Glucose Calculated Osmolality 284.8 Calcium 8.5 Troponin I - EKG EKG results: interpreted by me, no acute changes EKG shows: sinus rhythm Specialty Discharge - Follow Up or Referrals Follow up with: Your, PCP [Other] - 1 Week Barbara Gentile MD [Physician] - I, Barbara Gentile MD, personally performed the services described in this documentation, ascribed by Kaela Navarro RN in my presence, and it is both accurate and complete [id number] .
--- NOTE | 2016-04-13 18:14 | Event Note ---
I reevaluated patient this evening because of reports that she was having some chest discomfort and shortness of breath that were reported after morning rounds. Her family is present. Collectively they acknowledge that for some time she has been experiencing exertional chest pressure that usually relieves with rest. She is still experiencing this with exertion around her hospital room. She feels short of breath while at rest in the bed as well, although on exam her lungs are clear and recent CT scan of the chest did not demonstrate any pathology. Oxygen saturations have been normal. I discussed the role, risks and benefits of cardiac catheterization with the patient and she agrees to proceed. We'll plan on doing this Saturday. I have discussed this with Dr. King.
[2016-04-13] MEDS: ACETAMINOPHEN 325 MG TABLET PO PRN (18:46)
[2016-04-13] MEDS: ROSUVASTATIN 20 MG TABLET PO SCH (21:32)
[2016-04-14] MEDS: NITROGLYCERIN 2% OINT 1 INCH/GM PACK TOP SCH ×5 (01:43→23:26)
[2016-04-14] MEDS: ENOXAPARIN 80 MG/0.8 ML SYRINGE SUBCUT SCH ×2 (05:25→17:05)
[2016-04-14] MEDS: INSULIN LISPRO 100 UNIT/ML SUBCUT SCH ×4 (08:06→20:38)
[2016-04-14] MEDS: ASPIRIN 325 MG TABLET PO SCH (09:43)
[2016-04-14] MEDS: ARIPiprazole 5 MG TABLET PO SCH (09:43)
[2016-04-14] MEDS: CLOPIDOGREL 75 MG TABLET PO SCH (09:44)
[2016-04-14] MEDS: METOPROLOL SUCCINATE XL 25 MG TABLET PO SCH (09:44)
[2016-04-14] MEDS: PANTOPRAZOLE 40 MG TABLET PO SCH (09:44)
[2016-04-14] MEDS: VENLAFAXINE XR 75 MG CAPSULE PO SCH (09:44)
--- NOTE | 2016-04-14 10:10 | Hospitalist Progress Note ---
Assessment and Plan (1) Chest pain Status: Acute Assessment and plan: Patient is being scheduled for a cardiac cath on Saturday, she currently has no CP , SOB Current Visit: No (2) Hypertension Status: Chronic Assessment and plan: stable Current Visit: No (3) Hyperlipidemia Status: Chronic Assessment and plan: on statins Current Visit: No (4) Diabetes mellitus Status: Chronic Assessment and plan: IaD2p-3.0 -continue current regime Current Visit: No (5) TIA (transient ischemic attack) Status: Acute Assessment and plan: continue on plavix and aspirin Current Visit: Yes (6) CAD (coronary artery disease) Status: Chronic Assessment and plan: s/p CABG -for Cardiac cath in am Current Visit: No Hospitalist: Subjective Interval history: Patient seen. She had some chest discomfort and SOB last night, CT chest was negative for PE, so Cardiology wants to take her for a cardiac cath on Saturday. Exam - Constitutional Vitals: Period Temp Pulse Resp BP Sys/Steward Pulse Ox Last 24 Hr 96.0 F-98.2 F 60-74 16-20 100-130/64-76 91-96 General appearance: no acute distress - Head Head exam: Present: normal inspection - Neck Neck exam: Present: normal inspection - Cardiovascular Cardiovascular exam: Present: regular rate and rhythm - GI/Abdominal GI/Abdominal exam: Present: normal bowel sounds - Extremities Exam Extremities exam: Present: normal inspection Results - Labs CBC & BMP: 04/13/16 08:02 04/13/16 08:02 Lab Results: I have reviewed the past 24 hour labs Specialty Discharge - Follow Up or Referrals Follow up with: Your, PCP [Other] - 1 Week Barbara Gentile MD [Physician] -
--- NOTE | 2016-04-14 17:01 | Cardiology Progress Note ---
Assessment and Plan (1) Chest pain Status: Acute Assessment and plan: EKG is nonspecific and does not have any acute findings. Serial troponin levels are negative. D-dimer negative and CT chest negative for PE or other finding to explain symptoms. This could also be secondary to worsening CAD. She continues to have exertional symptoms. We will schedule for left heart catheterization on Saturday. Current Visit: Yes (2) Shortness of breath on exertion Status: Acute Assessment and plan: CT chest and D-dimer both negative. Possibly secondary to worsening of CAD. Current Visit: Yes (3) Unsteady gait Status: Resolved Assessment and plan: CT head and carotid doppler US negative for acute findings. MRI brain unremarkable. Presumptive TIA. Current Visit: Yes (4) Coronary artery disease Status: Chronic Assessment and plan: Left heart catheterization in December 2014 revealed severe single-vessel coronary artery disease with 100% ostial occlusion of the left anterior descending artery with patent SORENSEN graft to LAD. Ejection fraction 65%. Current Visit: Yes (5) Hx of CABG Status: Chronic Current Visit: Yes (6) Diabetes mellitus Status: Chronic Assessment and plan: Continue current plan of care. Defer management to hospitalist. Current Visit: No (7) Hyperlipidemia Status: Chronic Assessment and plan: Fasting lipid panel reviewed and is normal. Continue Crestor. Current Visit: No (8) Hypertension Status: Chronic Assessment and plan: Well controlled at this time. Continue current medication regimen. Current Visit: No Cardiology - PN: Subj Interval history: Evening was uneventful. She denies any current chest pain or shortness of breath. She is not experiencing any symptoms as long as she "takes it easy" and is not exerting herself. She denies any new neurologic deficits. Exam (Progress Note) - Constitutional Vitals: Period Temp Pulse Resp BP Sys/Steward Pulse Ox Last 24 Hr 96.0 F-98.2 F 60-88 16-20 100-130/62-81 93-97 Exam: General appearance: normal weight, no acute distress - Head Head exam: Present: normal inspection, normocephalic, atraumatic. Absent: hematoma, laceration - Eye Eye exam: Present: EOMI. Absent: conjunctival injection, nystagmus, periorbital swelling, scleral icterus, laceration to eyelids Pupils: Present: PERRL. Absent: constricted, dilated, fixed, irregular, unequal - ENT ENT exam: Present: normal exam, normal external ear exam - Neck Neck exam: Present: normal inspection. Absent: lymphadenopathy, meningismus, tenderness, thyromegaly - Respiratory Respiratory exam: Present: clear to auscultation bilaterally. Absent: accessory muscle use, chest wall tenderness - Cardiovascular Cardiovascular exam: Present: regular rate and rhythm. Absent: carotid bruit, gallop, JVD, rubs - GI/Abdominal GI/Abdominal exam: Present: normal bowel sounds, soft. Absent: distended, firm , guarding, hernia, mass, tenderness, rebound. - Extremities Exam Extremities exam: Present: normal inspection, normal capillary refill. Absent: calf tenderness, edema - Back Exam Back exam: Present: normal inspection. Absent: muscle spasm, vertebral tenderness - Neurological Exam Neurological exam: Present: alert, oriented X3, grossly intact without resting or intention tremor - Psychiatric Psychiatric exam: Present: normal affect, normal mood - Skin Skin exam: Present: normal color, warm, dry, intact. Absent: cyanosis, diaphoretic, rash, urticaria Result/EKG - Labs CBC & BMP: 04/13/16 08:02 04/13/16 08:02 Lab Results: I have reviewed the past 24 hour labs Labs: Laboratory Results - last 24 hr 04/13/16 04/14/16 04/14/16 18:52 07:26 12:27 POC Glucose 176 H 128 H 116 H 04/14/16 16:22 POC Glucose 234 H Specialty Discharge - Follow Up or Referrals Follow up with: Your, PCP [Other] - 1 Week Barbara Gentile MD [Physician] -
[2016-04-14] MEDS: ROSUVASTATIN 20 MG TABLET PO SCH (20:37)
--- NOTE | 2016-04-14 23:16 | ECHO Report ---
Maria Fernanda Ferrer 04/13/2016 Exam Date: 10:45 Referring Physician: Ashley Chavez Technologist: JUNE Age: 55 Ht (in): Wt (lb): FExam Location: [facility] Gender: Echo [id number]: Weakness, Shortness of breath, ChestIndications:pain, unspecified, CAD with previous CABG BP: / HR: SinusRhythm: FairTechnical Quality: IMPRESSIONS Normal LV systolic function, ejection fraction 60%. Grade 2/4 diastolic dysfunction. No significant valvular pathology identified. MEASUREMENTS (Male / Female) Normal Values 2D ECHO LV Diastolic Diameter PLAX 3.9 cm 4.2 - 5.9 / 3.9 - 5.3 cm LV Systolic Diameter PLAX 2.6 cm LV Fractional Shortening PLAX 33.0 % IVS Diastolic Thickness 1.0 cm 0.6 - 1.0 / 0.6 - 0.9 cm LVPW Diastolic Thickness 1.0 cm 0.6 - 1.0 / 0.6 - 0.9 cm RV Internal Dim ED PLAX 2.4 cm Aortic Root Diameter 3.2 cm LA Systolic Diameter LX 3.3 cm 3.0 - 4.0 / 2.7 - 3.8 cm FINDINGS Left Ventricle Normal left ventricular cavity size. Normal left ventricular wall thickness. Left ventricular ejection fraction is estimated at 60 %. Right Ventricle Mildly increased right ventricular size. Right Atrium Normal right atrial size. Left Atrium The left atrium is normal in size. Mitral Valve Morphologically normal mitral valve without significant stenosis or prolapse. There is no mitral regurgitation. Aortic Valve Morphologically normal aortic valve without significant sclerosis or stenosis. There is no aortic regurgitation. Tricuspid Valve Morphologically normal tricuspid valve without significant stenosis or regurgitation. Pulmonary artery systolic pressure is normal. Pulmonic Valve Morphologically normal pulmonic valve without significant stenosis. There is no pulmonic regurgitation. Pericardium Normal pericardium without effusion. Aorta Normal ascending aorta dimension. Barbara Gentile MD (Electronically Signed) 14 April 2016 Final Date: 23:14
[2016-04-15 04:57] LABS: Basophils % 0.5 % (0.0-0.8); Eosinophils # 0.1 10*3/uL (0.0-0.87); Eosinophils % 1.5 % (0.00-10.9); Hematocrit 37.8 VOL% (35.7-47.0); Hemoglobin 12.8 GM/DL (12.0-16.0); Immature Granulocytes % 0.2 %; Immature Granulocytes Absolute 0.02 #; Lymphocytes # 2.7 10*3/uL (1.4-4.0); Mean Corpuscular HGB Conc 33.9 GM/DL (32-36); Mean Corpuscular Hemoglobin 30 PG (27-34); Mean Corpuscular Volume 89.6 FL (87-102); Mean Platelet Volume 11.4 FL (9.6-12.0); Monocytes # 0.5 10*3/uL (0.11-0.8); Monocytes % 5.8 % (1.7-12.7); Neutrophils # 5.5 10*3/uL (1.4-7.4); Platelet Count 229 T/CUMM (130-400); Red Blood Count 4.22 MC/CUMM (3.8-5.5); Red Cell Distribution Width 12.3 % (9.3-17.3); White Blood Count 8.9 T/CUMM (4-12)
[2016-04-15] MEDS: ENOXAPARIN 80 MG/0.8 ML SYRINGE SUBCUT SCH ×2 (05:13→15:55)
[2016-04-15] MEDS: NITROGLYCERIN 2% OINT 1 INCH/GM PACK TOP SCH ×3 (05:13→18:15)
[2016-04-15 05:37] LABS: Calcium 8.8 MG/DL (8.5-10.1); Magnesium 2.1 MG/DL (1.8-2.4); Osmolality,Calculated 287.8 MOS/KG (273-304); Potassium 4.3 MMOL/L (3.5-5.1)
[2016-04-15] MEDS: INSULIN LISPRO 100 UNIT/ML SUBCUT SCH ×4 (08:17→21:12)
[2016-04-15] MEDS: METOPROLOL SUCCINATE XL 25 MG TABLET PO SCH (08:50)
[2016-04-15] MEDS: ARIPiprazole 5 MG TABLET PO SCH (08:50)
[2016-04-15] MEDS: PANTOPRAZOLE 40 MG TABLET PO SCH (08:51)
[2016-04-15] MEDS: CLOPIDOGREL 75 MG TABLET PO SCH (08:51)
[2016-04-15] MEDS: ASPIRIN 325 MG TABLET PO SCH (08:51)
[2016-04-15] MEDS: VENLAFAXINE XR 75 MG CAPSULE PO SCH (08:51)
[2016-04-15] MEDS ORDERED: DIAZEPAM 5 MG TABLET PO ONE (10:40)
[2016-04-15] MEDS ORDERED: MAGNESIUM SULF RIDER 2 GM in PREMIX 1 EACH IV PRN (10:40)
[2016-04-15] MEDS ORDERED: POTASSIUM CHLORIDE RIDER 10 MEQ in PREMIX 1 EACH IV PRN (10:40)
[2016-04-15] MEDS ORDERED: diphenhydrAMINE CAP 25 MG CAPSULE PO ONE (10:40)
--- NOTE | 2016-04-15 10:40 | Cardiology Progress Note ---
Assessment and Plan (1) Chest pain Status: Acute Assessment and plan: EKG is nonspecific and does not have any acute findings. Serial troponin levels are negative. D-dimer negative and CT chest negative for PE or other finding to explain symptoms. This could also be secondary to worsening CAD. She continues to have exertional symptoms. We will schedule for left heart catheterization on Saturday. Current Visit: Yes (2) Shortness of breath on exertion Status: Acute Assessment and plan: CT chest and D-dimer both negative. Possibly secondary to worsening of CAD. Current Visit: Yes (3) Unsteady gait Status: Resolved Assessment and plan: CT head and carotid doppler US negative for acute findings. MRI brain unremarkable. Presumptive TIA. Current Visit: Yes (4) Coronary artery disease Status: Chronic Assessment and plan: Left heart catheterization in December 2014 revealed severe single-vessel coronary artery disease with 100% ostial occlusion of the left anterior descending artery with patent SORENSEN graft to LAD. Ejection fraction 65%. Current Visit: Yes (5) Hx of CABG Status: Chronic Current Visit: Yes (6) Diabetes mellitus Status: Chronic Assessment and plan: Continue current plan of care. Defer management to hospitalist. Current Visit: No (7) Hyperlipidemia Status: Chronic Assessment and plan: Fasting lipid panel reviewed and is normal. Continue Crestor. Current Visit: No (8) Hypertension Status: Chronic Assessment and plan: Well controlled at this time. Continue current medication regimen. Current Visit: No Cardiology - PN: Subj Interval history: This is a patient mind with known coronary artery disease who is admitted to the hospital with what appears to have been a transient ischemic attack interfering with her proprioception and gait stability. The symptoms have since resolved. However, she also complains of exertional chest discomfort and shortness of breath predictably. She is scheduled for heart catheterization tomorrow. Her symptoms overall unchanged, she continues to have exertional chest discomfort and shortness of breath but is able to perform ADLs in the room without significant symptoms. Exam (Progress Note) - Constitutional Vitals: Period Temp Pulse Resp BP Sys/Steward Pulse Ox Last 24 Hr 96.3 F-97.5 F 73-88 16-20 99-119/59-81 93-97 Exam: General appearance: normal weight, no acute distress - Head Head exam: Present: normal inspection, normocephalic, atraumatic. Absent: hematoma, laceration - Eye Eye exam: Present: EOMI. Absent: conjunctival injection, nystagmus, periorbital swelling, scleral icterus, laceration to eyelids Pupils: Present: PERRL. Absent: constricted, dilated, fixed, irregular, unequal - ENT ENT exam: Present: normal exam, normal external ear exam - Neck Neck exam: Present: normal inspection. Absent: lymphadenopathy, meningismus, tenderness, thyromegaly - Respiratory Respiratory exam: Present: clear to auscultation bilaterally. Absent: accessory muscle use, chest wall tenderness - Cardiovascular Cardiovascular exam: Present: regular rate and rhythm. Absent: carotid bruit, gallop, JVD, rubs - GI/Abdominal GI/Abdominal exam: Present: normal bowel sounds, soft. Absent: distended, firm , guarding, hernia, mass, tenderness, rebound. - Extremities Exam Extremities exam: Present: normal inspection, normal capillary refill. Absent: calf tenderness, edema - Back Exam Back exam: Present: normal inspection. Absent: muscle spasm, vertebral tenderness - Neurological Exam Neurological exam: Present: alert, oriented X3, grossly intact without resting or intention tremor - Psychiatric Psychiatric exam: Present: normal affect, normal mood - Skin Skin exam: Present: normal color, warm, dry, intact. Absent: cyanosis, diaphoretic, rash, urticaria Result/EKG - Labs CBC & BMP: 04/15/16 04:33 04/15/16 04:33 Lab Results: I have reviewed the past 24 hour labs Labs: Laboratory Results - last 24 hr 04/14/16 04/14/16 04/14/16 12:27 16:22 19:15 WBC RBC Hgb Hct MCV MCH MCHC RDW Plt Count MPV Neut % (Auto) Lymph % (Auto) [place] % (Auto) Eos % (Auto) Baso % (Auto) Neut # (Auto) Lymph # (Auto) [place] # (Auto) Eos # (Auto) Baso # (Auto) Immature Gran % Nucleated RBC % Immature Gran # Nucleated RBCs # Sodium Potassium Chloride Carbon Dioxide Anion Gap BUN Creatinine GFR Calculation BUN/Creatinine Ratio Glucose POC Glucose 116 H 234 H 183 H Calculated Osmolality Calcium Magnesium 04/15/16 04/15/16 04/15/16 04:33 04:33 07:51 WBC 8.9 RBC 4.22 Hgb 12.8 Hct 37.8 MCV 89.6 MCH 30 MCHC 33.9 RDW 12.3 Plt Count 229 MPV 11.4 Neut % (Auto) 62.0 Lymph % (Auto) 30.0 [place] % (Auto) 5.8 Eos % (Auto) 1.5 Baso % (Auto) 0.5 Neut # (Auto) 5.5 Lymph # (Auto) 2.7 [place] # (Auto) 0.5 Eos # (Auto) 0.1 Baso # (Auto) 0.0 Immature Gran % 0.2 Nucleated RBC % 0.0 Immature Gran # 0.02 Nucleated RBCs # 0.00 Sodium 144 Potassium 4.3 Chloride 107 Carbon Dioxide 26 Anion Gap 15.3 H BUN 10 Creatinine 1.00 GFR Calculation 69 BUN/Creatinine Ratio 10.00 Glucose 150 H POC Glucose 140 H Calculated Osmolality 287.8 Calcium 8.8 Magnesium 2.1 Specialty Discharge - Follow Up or Referrals Follow up with: Your, PCP [Other] - 1 Week Barbara Gentile MD [Physician] -
--- NOTE | 2016-04-15 13:49 | Hospitalist Progress Note ---
Assessment and Plan (1) Chest pain Status: Acute Assessment and plan: Patient is being scheduled for a cardiac cath in am she currently has no CP, SOB Plan follow Cardiology's recommendations Current Visit: No (2) Hypertension Status: Chronic Assessment and plan: stable Current Visit: No (3) Hyperlipidemia Status: Chronic Assessment and plan: on statins Current Visit: No (4) Diabetes mellitus Status: Chronic Assessment and plan: [id number]-3.0 -continue current regime Current Visit: No (5) TIA (transient ischemic attack) Status: Acute Assessment and plan: continue on plavix and aspirin Current Visit: Yes (6) CAD (coronary artery disease) Status: Chronic Assessment and plan: s/p CABG -for Cardiac cath in am Current Visit: No Hospitalist: Subjective Interval history: Patient seen. no new complaints. She is scheduled for a cardiac cath in am Exam - Constitutional Vitals: Period Temp Pulse Resp BP Sys/Steward Pulse Ox Last 24 Hr 96.3 F-97.5 F 73-88 16-20 99-120/59-73 93-97 General appearance: no acute distress - Head Head exam: Present: normal inspection - Respiratory Respiratory exam: Present: clear to auscultation bilaterally - Cardiovascular Cardiovascular exam: Present: regular rate and rhythm - GI/Abdominal GI/Abdominal exam: Present: normal bowel sounds - Extremities Exam Extremities exam: Present: normal inspection Results - Labs CBC & BMP: 04/15/16 04:33 04/15/16 04:33 Lab Results: I have reviewed the past 24 hour labs Specialty Discharge - Follow Up or Referrals Follow up with: Your, PCP [Other] - 1 Week Barbara Gentile MD [Physician] -
[2016-04-15] MEDS: SODIUM CHLORIDE 0.45% 1,000 ML IV SCH ×3 (15:55→23:49)
--- NOTE | 2016-04-15 16:40 | History and Physical Update ---
Sedation H&P Update - History and Physical H&P was reviewed, the patient examined and there: are no changes in the patients condition since last H&P was completed. - Dictation Physical: refer to scanned H&P - Physical Exam Mental Status: alert and oriented Heart: regular rate and rhythm Lung: clear to auscultation Abdomen: within normal limits Vitals: within normal limits - Sedation Plan for Sedation: moderate Patient Consent: Procedure disscussed with patient and patinet has consented., Risks and benefits were discussed with patient,including infection,, bleeding, injury to surrounding structures, seizure, temporary nerve, Patient understands and accepts potential risks/benefits and agrees to, proceed. ASA Class: IV Airway Assessment: Class I: Soft palate, uvula, fauces, pillars visible
[2016-04-15] MEDS: ROSUVASTATIN 20 MG TABLET PO SCH (21:11)
[2016-04-15] MEDS: ACETAMINOPHEN 325 MG TABLET PO PRN (23:50)
[2016-04-16] MEDS: NITROGLYCERIN 2% OINT 1 INCH/GM PACK TOP SCH ×3 (00:17→17:21)
[2016-04-16] MEDS: SODIUM CHLORIDE 0.45% 1,000 ML IV SCH ×4 (04:30→23:41)
[2016-04-16] MEDS: ENOXAPARIN 80 MG/0.8 ML SYRINGE SUBCUT SCH ×2 (05:29→17:21)
[2016-04-16 06:12] LABS: Basophils % 0.5 % (0.0-0.8); Eosinophils # 0.1 10*3/uL (0.0-0.87); Eosinophils % 1.5 % (0.00-10.9); Hematocrit 37.2 VOL% (35.7-47.0); Hemoglobin 12.6 GM/DL (12.0-16.0); Immature Granulocytes % 0.4 %; Immature Granulocytes Absolute 0.03 #; Lymphocytes # 2.4 10*3/uL (1.4-4.0); Lymphocytes % 29.6 % (21.3-54.2); Mean Corpuscular HGB Conc 33.9 GM/DL (32-36); Mean Corpuscular Hemoglobin 30 PG (27-34); Mean Platelet Volume 11.4 FL (9.6-12.0); Monocytes # 0.4 10*3/uL (0.11-0.8); Monocytes % 5.1 % (1.7-12.7); Neutrophils # 5.1 10*3/uL (1.4-7.4); Neutrophils % 62.9 % (38.7-73.9); Platelet Count 218 T/CUMM (130-400); Red Blood Count 4.18 MC/CUMM (3.8-5.5); Red Cell Distribution Width 12.2 % (9.3-17.3); White Blood Count 8.2 T/CUMM (4-12)
[2016-04-16 06:50] LABS: Calcium 8.6 MG/DL (8.5-10.1); Magnesium 2.2 MG/DL (1.8-2.4); Potassium 4.2 MMOL/L (3.5-5.1)
[2016-04-16] MEDS: INSULIN LISPRO 100 UNIT/ML SUBCUT SCH ×4 (10:22→21:39)
[2016-04-16] MEDS: CLOPIDOGREL 75 MG TABLET PO SCH (10:22)
[2016-04-16] MEDS: METOPROLOL SUCCINATE XL 25 MG TABLET PO SCH (10:22)
[2016-04-16] MEDS: ASPIRIN 325 MG TABLET PO SCH (10:22)
--- NOTE | 2016-04-16 10:24 | Hospitalist Progress Note ---
Assessment and Plan (1) Chest pain Status: Acute Assessment and plan: For cardiac cath this am. Plan follow Cardiology's recommendations Current Visit: No (2) Hypertension Status: Chronic Assessment and plan: stable Current Visit: No (3) Hyperlipidemia Status: Chronic Assessment and plan: on statins Current Visit: No (4) Diabetes mellitus Status: Chronic Assessment and plan: [id number]-9.0 -continue current regime Current Visit: No (5) TIA (transient ischemic attack) Status: Acute Assessment and plan: continue on plavix and aspirin Current Visit: Yes (6) CAD (coronary artery disease) Status: Chronic Assessment and plan: s/p CABG -follow cardiac cath this am Current Visit: No Hospitalist: Subjective Interval history: Patient seen this am, no new complaints. She is going for a cardiac cath today. Exam - Constitutional Vitals: Period Temp Pulse Resp BP Sys/Steward Pulse Ox Last 24 Hr 96.7 F-97.6 F 66-77 16-20 102-123/65-70 92-97 General appearance: no acute distress - Respiratory Respiratory exam: Present: clear to auscultation bilaterally - Cardiovascular Cardiovascular exam: Present: regular rate and rhythm - GI/Abdominal GI/Abdominal exam: Present: normal bowel sounds - Extremities Exam Extremities exam: Present: normal inspection Results - Labs CBC & BMP: 04/16/16 05:44 04/16/16 05:44 Lab Results: I have reviewed the past 24 hour labs Specialty Discharge - Follow Up or Referrals Follow up with: Your, PCP [Other] - 1 Week Barbara Gentile MD [Physician] -
[2016-04-16] MEDS ORDERED: HEPARIN/NACL 0.9% 2 UNITS/ML 0 ML IV ONE (13:14)
[2016-04-16] MEDS ORDERED: LIDOCAINE 1% 20 ML VIAL ONE ×2 (13:14→14:40)
[2016-04-16] MEDS ORDERED: HEPARIN/NACL 0.9% 2 UNITS/ML 1,000 ML IV ONE (14:40)
[2016-04-16] MEDS ORDERED: SODIUM BICARBONATE 2.4 MEQ/5 ML VIAL ONE (14:40)
[2016-04-16] MEDS ORDERED: DIAZEPAM 5 MG TABLET ONE (14:46)
[2016-04-16] MEDS ORDERED: diphenhydrAMINE CAP 25 MG CAPSULE ONE (14:47)
[2016-04-16] MEDS ORDERED: MIDAZOLAM 2 MG/2 ML VIAL ONE (15:10)
[2016-04-16] MEDS ORDERED: fentaNYL 100 MCG/2 ML VIAL ONE (15:11)
--- NOTE | 2016-04-16 15:24 | Event Note ---
Patient gone for cardiac cath
[2016-04-16] MEDS ORDERED: NITROGLYCERIN SL 0.4 MG TABLET SL PRN (16:02)
[2016-04-16] MEDS ORDERED: MORPHINE 2 MG/1 ML SYRINGE IV PRN (16:02)
[2016-04-16] MEDS ORDERED: ONDANSETRON 4 MG/2 ML VIAL IV PRN (16:02)
--- NOTE | 2016-04-16 16:15 | Cardiology Operative Report ---
Date of Procedure:: 04/16/16 Pre-op diagnosis: coronary artery disease, angina Post-op diagnosis: other (stable CAD with 100% occluded LAD, patent SORENSEN to LAD) Procedure: 1. Selective left and right coronary angiography. 2. Left heart catheterization with left ventriculogram. 3. Right iliac angiography to rule out vascular complications. 4. Left internal mammary artery bypass graft angiography. 5. Application Mynx hemostasis device to the right femoral arteriotomy site. Impression: 1. Stable coronary artery disease with 100% ostially occluded LAD, patent SORENSEN to LAD. [place] LAD is a small vessel. 2. Right dominant coronary arteries. 3. Ejection fraction 55%. 4. Angiographically normal right iliac artery without evidence of vascular complications. Plan: 1. Medical management. 2. Noncardiac workup of symptoms. Equipment: Diagnostic 6 Samoan JL4, JR4, pigtail catheters. Hemodynamics: Aortic pressure 108/66 mmHg, left ventricular pressure 104/3 mmHg, LVEDP to mmHg Sedation: Versed 2 mg, fentanyl 50 g Procedure: After informed consent was obtained the patient was prepped and draped in sterile fashion. The right groin was infiltrated with 1% lidocaine and the right femoral artery was accessed via modified Seldinger technique using a micropuncture needle and a 6 Samoan femoral arterial sheath was placed. All catheter exchanges were performed over a guidewire under fluoroscopic guidance. Diagnostic 6 Samoan JL4 and JR4 catheters were advanced to the left and right coronary arteries respectively and multiple cineangiograms were performed in varying degrees of obliquity and angulation. The Barbara catheter was then withdrawn and advanced into the left subclavian artery, where was used to intubate the left internal mammary artery bypass graft. Multiple cine angiograms were performed in varying degrees of obliquity angulation. Thereafter a pigtail catheter was advanced into the left ventricle where hemodynamics were obtained followed by left ventriculogram. At conclusion of the procedure right iliac angiography was performed to rule out vascular complications. A Mynx hemostasis device was unsuccessful applied to the right femoral artery on the site. Findings: 1. The left main artery is angiographically normal. 2. The left anterior descending artery his 100% occluded at the ostium. When visualized through the SORENSEN graft, it is recognized is a diffusely small vessel. 3. There is an intermediate ramus branch that is small, free of significant disease.. 4. The circumflex artery is a moderate sized system with luminal irregularities throughout, but no significant stenosis. 5. The right coronary artery is a dominant vessel, and free of significant disease. 6. Ejection fraction is 55 % with normal anterior, inferior and apical wall motion. 7. No significant mitral regurgitation. 8. No significant aortic stenosis. 9. The right iliac artery is angiographically normal without evidence of vascular complications. Contrast use: Omnipaque 73 cc Fluoro time: 3.8 minutes Complications: none Specimens removed: none Devices implanted: Mynx Anesthesia: moderate conscious sedation Surgeon / Physician: Barbara Gentile Dredge Pipeman: none (Kiko Azul) Estimated blood loss: minimal Specimens: none sent Condition: stable Disposition: floor
[2016-04-16] MEDS: VENLAFAXINE XR 75 MG CAPSULE PO SCH (17:00)
[2016-04-16] MEDS: ARIPiprazole 5 MG TABLET PO SCH (17:01)
[2016-04-16] MEDS: PANTOPRAZOLE 40 MG TABLET PO SCH (17:01)
[2016-04-16] MEDS: ACETAMINOPHEN 325 MG TABLET PO PRN (19:42)
[2016-04-16] MEDS: ROSUVASTATIN 20 MG TABLET PO SCH (21:39)
[2016-04-16] MEDS ORDERED: ALPRAZolam 0.25 MG TABLET PO PRN (22:21)
[2016-04-17] MEDS: ACETAMINOPHEN 325 MG TABLET PO PRN (00:25)
[2016-04-17] MEDS: NITROGLYCERIN 2% OINT 1 INCH/GM PACK TOP SCH ×3 (00:28→07:24)
[2016-04-17] MEDS: SODIUM CHLORIDE 0.45% 1,000 ML IV SCH (02:54)
[2016-04-17] MEDS: ENOXAPARIN 80 MG/0.8 ML SYRINGE SUBCUT SCH (05:01)
[2016-04-17 05:36] LABS: Basophils % 0.4 % (0.0-0.8); Eosinophils # 0.1 10*3/uL (0.0-0.87); Eosinophils % 1.6 % (0.00-10.9); Hematocrit 37.3 VOL% (35.7-47.0); Hemoglobin 12.3 GM/DL (12.0-16.0); Immature Granulocytes % 0.4 %; Immature Granulocytes Absolute 0.03 #; Lymphocytes # 2.3 10*3/uL (1.4-4.0); Lymphocytes % 28.8 % (21.3-54.2); Mean Corpuscular Hemoglobin 30 PG (27-34); Mean Corpuscular Volume 92.3 FL (87-102); Monocytes # 0.4 10*3/uL (0.11-0.8); Monocytes % 5.4 % (1.7-12.7); Neutrophils # 5.1 10*3/uL (1.4-7.4); Neutrophils % 63.4 % (38.7-73.9); Platelet Count 203 T/CUMM (130-400); Red Blood Count 4.04 MC/CUMM (3.8-5.5); Red Cell Distribution Width 12.3 % (9.3-17.3)
[2016-04-17 06:08] LABS: Calcium 8.1 MG/DL (8.5-10.1); Magnesium 2.1 MG/DL (1.8-2.4); Osmolality,Calculated 288.7 MOS/KG (273-304); Potassium 4.1 MMOL/L (3.5-5.1)
[2016-04-17 08:30] VITALS: BP 126/70
[2016-04-17] MEDS: CLOPIDOGREL 75 MG TABLET PO SCH (08:43)
[2016-04-17] MEDS: PANTOPRAZOLE 40 MG TABLET PO SCH (08:43)
[2016-04-17] MEDS: METOPROLOL SUCCINATE XL 25 MG TABLET PO SCH (08:43)
[2016-04-17] MEDS: VENLAFAXINE XR 75 MG CAPSULE PO SCH (08:43)
[2016-04-17] MEDS: ASPIRIN 325 MG TABLET PO SCH (08:43)
[2016-04-17] MEDS: ARIPiprazole 5 MG TABLET PO SCH (08:44)
--- NOTE | 2016-04-17 09:27 | Discharge Summary ---
<Katie Nobles - Last Filed: 04/17/16 09:18> Hospital Course - Hospital Course Hospital Course: Ms. Ferrer was admitted on 04/12 with abrupt onset of intelligible but nonsensical speech and feeling of the room tilting. She was weak on the left. She did require max assist when being brought to the ER. She had been seen in the ER b/c of chest pain and hx of CAD and CABG. She had a negative cath last year. She was admitted givne weakness in right arm and left leg and word findings issues. MRI brain, carotids, echo, PT/OT/ST were initiated. She was started on ASA and statin. Neurology was consulted. She was started on lovenox for vte prophylaxis. Dr. Gentile saw in consultation in the ED for chest pain. Her EKG was nonspecific. Her troponins were negative, and serials were as well. Chest CT and D-dimer were obtained to r/o PE. These were negative. On 04/13 , Dr. Gentile was called back to telemetry for reports of chest pain and shortness of breath. She did have dyspnea on exertion while walking in her room. Lungs were clear, and oxygen saturations were normal. Cath was discussed and she wished to proceed. On 04/16, she had a cath that showed a LAD 100%. EF 55%. These findings are stable. She has been cleared by Cardiology for discharge and will be discharged home today on appropriate medications and follow up. - Time spent with patient Time with patient DS: Greater than 30 minutes (due to plan, doc and med rec.) Diagnosis - Discharge Diagnosis (1) Chest pain Status: Acute (2) Shortness of breath on exertion Status: Acute (3) TIA (transient ischemic attack) Status: Acute (4) Coronary artery disease Status: Chronic (5) Hx of CABG Status: Chronic (6) Unsteady gait Status: Resolved (7) Hyperlipidemia Status: Chronic (8) Hypertension Status: Chronic Specialty Discharge - Follow Up or Referrals Follow up with: Your, PCP [Other] - 1 Week Barbara Gentile MD [Physician] - 1 Month Discharge Plan - Discharge Data Disposition: Disch To Home/Self Care - Discharge Medications New Aspirin Chew Tab 81 mg PO DAILY #100 tablet ALPRAZolam [Xanax] 0.25 mg PO Q8HR PRN #14 tablet PRN Reason: Anxiety Nitroglycerin Sl Tab [Nitrostat] 0.4 mg SL Q5M PRN #0 tablet PRN Reason: Chest Pain Continue Venlafaxine HCl [Effexor XR] 150 mg PO DAILY ARIPiprazole [Abilify] 15 mg PO DAILY Dextroamphetamine/Amphetamine [Adderall 10 mg Tablet] 10 mg PO BID Atorvastatin [Lipitor] 40 mg PO BEDTIME #30 tablet Clopidogrel [Plavix] 75 mg PO DAILY #30 tablet Omeprazole [Prilosec] 20 mg PO DAILY #30 capsule Metoprolol Succinate Xl [Toprol Xl] 25 mg PO DAILY #30 tablet Glimepiride 4 mg PO BIDAC Benztropine Mesylate 1 mg PO BEDTIME Temazepam [Restoril] 15 mg PO BEDTIME - Follow Up or Referral Follow Up: Your, PCP [Other] - 1 Week Barbara Gentile MD [Physician] - 1 Month - Forms/Instructions Instructions: Left Heart Catheterization (DC) Exam - Constitutional Vitals: Period Temp Pulse Resp BP Sys/Steward Pulse Ox Last 24 Hr 96.3 F-97.3 F 61-86 16-20 99-126/60-93 93-96 Discharge Results Labs on day of discharge: Labs from last 24 hours 04/17/16 04/17/16 04/17/16 07:49 05:24 05:24 WBC 8.0 RBC 4.04 Hgb 12.3 Hct 37.3 MCV 92.3 MCH 30 MCHC 33.0 RDW 12.3 Plt Count 203 MPV 11.0 Neut % (Auto) 63.4 Lymph % (Auto) 28.8 [place] % (Auto) 5.4 Eos % (Auto) 1.6 Baso % (Auto) 0.4 Neut # (Auto) 5.1 Lymph # (Auto) 2.3 [place] # (Auto) 0.4 Eos # (Auto) 0.1 Baso # (Auto) 0.0 Immature Gran % 0.4 Nucleated RBC % 0.0 Immature Gran # 0.03 Nucleated RBCs # 0.00 Sodium 145 Potassium 4.1 Chloride 109 H Carbon Dioxide 26 Anion Gap 14.1 BUN 8 Creatinine 0.90 GFR Calculation 80 BUN/Creatinine Ratio 8.00 Glucose 151 H POC Glucose 137 H Calculated Osmolality 288.7 Calcium 8.1 L Magnesium 2.1 04/16/16 04/16/1604/16/17 19:49 17:20 11:22 WBC RBC Hgb Hct MCV MCH MCHC RDW Plt Count MPV Neut % (Auto) Lymph % (Auto) [place] % (Auto) Eos % (Auto) Baso % (Auto) Neut # (Auto) Lymph # (Auto) [place] # (Auto) Eos # (Auto) Baso # (Auto) Immature Gran % Nucleated RBC % Immature Gran # Nucleated RBCs # Sodium Potassium Chloride Carbon Dioxide Anion Gap BUN Creatinine GFR Calculation BUN/Creatinine Ratio Glucose POC Glucose 229 H 90 158 H Calculated Osmolality Calcium Magnesium DS: Provider Date of admission: 04/12/16 15:38 Primary care physician: . No PCP Attending physician on admission: Kady King MD Consults: 04/12/16 16:09 Consult to Case Mgmt/Social Srvs [CONS] Routine Reason for Case Mgmt/Social Srvs: Discharge Planning Consult to Occupational Therapy [CONS] Routine Reason for Occupational Therapy: Evaluate and Treat Consult Comment: Stroke Consult to Physical Therapy [CONS] Routine Reason for Physical Therapy: Evaluate and Treat Consult Comment: stroke 04/12/16 17:44 Consult to Pharmacy [CONS] Routine Reason for Pharmacy Consult: Adjust Meds Renal Funct Discharging clinician: Katie Nobles NP Expected date of discharge: 04/17/16 <Jacquelin Hernandez - Last Filed: 04/17/16 10:48> Hospital Course - Time spent with patient Time with patient DS: Greater than 30 minutes Diagnosis - Discharge Diagnosis (1) Chest pain Status: Acute (2) Hypertension Status: Chronic (3) Hyperlipidemia Status: Chronic (4) Diabetes mellitus Status: Chronic (5) TIA (transient ischemic attack) Status: Acute (6) CAD (coronary artery disease) Status: Chronic Discharge Plan - Discharge Data Condition at Discharge: Stable Discharge Diet: heart healthy Activity: resume usual activities as tolerated - Forms/Instructions Additional Discharge Instructions: Follow with Cardiology as scheduled and PCP in 1week
== END 2016-04-17 12:20 | disposition home or self-care (01) | DRG 287 ==
LOC: N.ED 10:16 → N.EDINP 10:16 → OBSVTOIN 15:38 → SUATTDRO 15:38 → N.EDINP 16:45 → N.TELES 17:38
PROVIDERS: ADMIT Internal Medicine; ATTEND Internal Medicine

== ENCOUNTER 2020-01-27 13:10 | Observation (INO) ==
[2020-01-27 13:46] LABS: Basophils % 0.2 % (0.0-0.8); Hematocrit 40.6 VOL% (35.7-47.0); Hemoglobin 13.7 GM/DL (12.0-16.0); Immature Granulocytes % 0.5 %; Immature Granulocytes Absolute 0.05 #; Lymphocytes # 0.9 10*3/uL (1.4-4.0); Lymphocytes % 9.2 % (21.3-54.2); Mean Corpuscular HGB Conc 33.7 GM/DL (32-36); Mean Corpuscular Volume 88.1 FL (87-102); Mean Platelet Volume 10.7 FL (9.6-12.0); Monocytes % 3.9 % (1.7-12.7); Neutrophils % 86.2 % (38.7-73.9); Platelet Count 234 T/CUMM (130-400); Red Blood Count 4.61 MC/CUMM (3.8-5.5); Red Cell Distribution Width 13.1 % (9.3-17.3); White Blood Count 9.7 T/CUMM (4-12)
[2020-01-27] MEDS ORDERED: DEXAMETHASONE 4 MG/1 ML VIAL IV STA (13:47)
[2020-01-27] MEDS ORDERED: CETIRIZINE 10 MG TABLET PO STA (13:47)
[2020-01-27] MEDS ORDERED: FAMOTIDINE 20 MG/2 ML VIAL IV STA (13:47)
[2020-01-27 13:56] LABS: PT Patient Result 10.8 SECS (9.8-11.9)
[2020-01-27 14:05] LABS: Alanine Aminotransferase 25 U/L (13-56); Albumin 3.3 G/DL (3.4-5.0); Alkaline Phosphatase 109 U/L (45-117); Aspartate Amino Transferase 37 U/L (0-37); Blood Urea Nitrogen 8 MG/DL (7-18); Calcium 8.6 MG/DL (8.5-10.1); Estimated Glom Filtration Rate 68 ML/MIN; Glucose 143 MG/DL (74-106); Osmolality,Calculated 267.2 MOS/KG (273-304); Total Protein 7.4 G/DL (6.4-8.3)
[2020-01-27] MEDS ORDERED: POTASSIUM CHLORIDE 20 MEQ TABLET PO PRN (14:26)
[2020-01-27] MEDS ORDERED: DEXTROSE 50% 25 GM/50 ML VIAL IV PRN (14:26)
[2020-01-27] MEDS ORDERED: ACETAMINOPHEN 325 MG TABLET PO PRN (14:26)
[2020-01-27] MEDS ORDERED: ONDANSETRON 4 MG/2 ML VIAL IV PRN (14:26)
[2020-01-27] MEDS ORDERED: CETIRIZINE 10 MG TABLET PO PRN (14:26)
[2020-01-27] MEDS ORDERED: GLUCAGON 1 MG VIAL IM PRN (14:26)
[2020-01-27] MEDS ORDERED: guaiFENesin/DM ER 600-30 MG TABLET PO PRN (14:26)
[2020-01-27] MEDS ORDERED: ENOXAPARIN 40 MG/0.4 ML SYRINGE SUBCUT SCH (14:30)
[2020-01-27] MEDS ORDERED: AZITHROMYCIN INJ 500 MG in SODIUM CHLORIDE 0.9% 250 ML IV SCH (14:30)
[2020-01-27] MEDS ORDERED: NITROGLYCERIN SL 0.4 MG TABLET SL PRN (14:31)
[2020-01-27 15:10] LABS: Ferritin 201.4 ng/ml (8-252)
[2020-01-27 15:57] LABS: Risk Ratio 3.31; Thyroid Stimulating Hormone 0.483 uIU/ml (0.358-3.74); VLDL CHOLESTEROL 24.8 MG/DL
[2020-01-27] MEDS ORDERED: BENZONATATE 100 MG CAPSULE PO PRN (16:35)
[2020-01-27] MEDS: ZINC SULFATE 220 MG CAPSULE PO SCH (17:34)
[2020-01-27] MEDS: CHOLECALCIFEROL 1,000 UNIT TABLET PO SCH (17:34)
[2020-01-27] MEDS: ASCORBIC ACID 500 MG TABLET PO SCH ×2 (17:34→22:15)
[2020-01-27] MEDS: INSULIN LISPRO 100 UNIT/ML SUBCUT SCH ×2 (17:35→22:15)
[2020-01-27] MEDS ORDERED: CLOPIDOGREL 75 MG TABLET PO SCH (21:00)
[2020-01-27] MEDS ORDERED: METOPROLOL SUCCINATE XL 25 MG TABLET PO SCH (21:00)
[2020-01-27] MEDS ORDERED: DEXAMETHASONE 4 MG TABLET PO SCH (21:00)
[2020-01-27] MEDS ORDERED: ATORVASTATIN 40 MG TABLET PO SCH (21:00)
[2020-01-28 05:59] LABS: Basophils % 0.2 % (0.0-0.8); Hematocrit 40.4 VOL% (35.7-47.0); Hemoglobin 13.8 GM/DL (12.0-16.0); Immature Granulocytes % 0.4 %; Immature Granulocytes Absolute 0.05 #; Lymphocytes # 0.8 10*3/uL (1.4-4.0); Lymphocytes % 6.8 % (21.3-54.2); Mean Corpuscular HGB Conc 34.2 GM/DL (32-36); Mean Corpuscular Volume 88.4 FL (87-102); Mean Platelet Volume 11.2 FL (9.6-12.0); Monocytes % 2.5 % (1.7-12.7); Neutrophils % 90.1 % (38.7-73.9); Platelet Count 239 T/CUMM (130-400); Red Blood Count 4.57 MC/CUMM (3.8-5.5); Red Cell Distribution Width 12.9 % (9.3-17.3); White Blood Count 11.8 T/CUMM (4-12)
[2020-01-28 06:12] LABS: Calcium 8.9 MG/DL (8.5-10.1)
[2020-01-28] MEDS ORDERED: ARIPiprazole 10 MG TABLET PO SCH (09:00)
[2020-01-28] MEDS ORDERED: VENLAFAXINE XR 75 MG CAPSULE PO SCH (09:00)
[2020-01-28] MEDS ORDERED: PANTOPRAZOLE 40 MG TABLET PO SCH (09:00)
[2020-01-28] MEDS ORDERED: ASPIRIN CHEW 81 MG TABLET PO SCH (09:00)
[2020-01-28] MEDS: INSULIN LISPRO 100 UNIT/ML SUBCUT SCH ×2 (09:11→12:58)
[2020-01-28] MEDS: ZINC SULFATE 220 MG CAPSULE PO SCH (09:12)
[2020-01-28] MEDS: CHOLECALCIFEROL 1,000 UNIT TABLET PO SCH (09:12)
[2020-01-28] MEDS: ASCORBIC ACID 500 MG TABLET PO SCH (09:12)
[2020-01-28 11:29] VITALS: BP 126/62
== END 2020-01-28 14:21 | disposition home health service (06) ==
LOC: EDUNIT# → EDBD → N.EDINP 13:10 → N.ED 13:10 → N.EDINP 16:05 → N.2E 16:31
PROVIDERS: ADMIT Family Medicine; ATTEND Family Medicine

== ENCOUNTER 2020-02-03 09:45 | Inpatient (IN) ==
[2020-02-03 10:26] LABS: Basophils % 0.2 % (0.0-0.8); Eosinophils % 0.1 % (0.00-10.9); Hematocrit 45.8 VOL% (35.7-47.0); Hemoglobin 15.6 GM/DL (12.0-16.0); Immature Granulocytes % 2.3 %; Immature Granulocytes Absolute 0.27 #; Lymphocytes # 1.1 10*3/uL (1.4-4.0); Lymphocytes % 9.2 % (21.3-54.2); Mean Corpuscular HGB Conc 34.1 GM/DL (32-36); Mean Corpuscular Volume 86.6 FL (87-102); Mean Platelet Volume 10.7 FL (9.6-12.0); Monocytes % 3.1 % (1.7-12.7); Neutrophils % 85.1 % (38.7-73.9); Platelet Count 419 T/CUMM (130-400); Red Blood Count 5.29 MC/CUMM (3.8-5.5); Red Cell Distribution Width 13.2 % (9.3-17.3); White Blood Count 11.8 T/CUMM (4-12)
[2020-02-03 10:47] LABS: Alanine Aminotransferase 37 U/L (13-56); Albumin 3.2 G/DL (3.4-5.0); Alkaline Phosphatase 102 U/L (45-117); Aspartate Amino Transferase 51 U/L (0-37); Blood Urea Nitrogen 18 MG/DL (7-18); Estimated Glom Filtration Rate 68 ML/MIN; Glucose 124 MG/DL (74-106); Osmolality,Calculated 272.1 MOS/KG (273-304); Total Protein 8.5 G/DL (6.4-8.3)
[2020-02-03] MEDS ORDERED: SODIUM CHLORIDE 0.9% 1,000 ML IV STA ×2 (11:03)
[2020-02-03] MEDS ORDERED: ACETAMINOPHEN 325 MG TABLET PO PRN (11:33)
[2020-02-03] MEDS ORDERED: DEXTROSE 50% 25 GM/50 ML VIAL IV PRN ×2 (11:33)
[2020-02-03] MEDS ORDERED: GLUCAGON 1 MG VIAL IM PRN (11:33)
[2020-02-03] MEDS ORDERED: guaiFENesin/DM ER 600-30 MG TABLET PO PRN (11:33)
[2020-02-03] MEDS ORDERED: ONDANSETRON 4 MG/2 ML VIAL IV PRN (11:33)
[2020-02-03] MEDS ORDERED: hydrALAZINE 20 MG/1 ML VIAL IV PRN (11:33)
[2020-02-03 11:50] LABS: INR 1.1; PT Patient Result 11.4 SECS (9.8-11.9)
[2020-02-03] MEDS ORDERED: ENOXAPARIN 40 MG/0.4 ML SYRINGE SUBCUT SCH (12:00)
[2020-02-03] MEDS: SODIUM CHLORIDE 0.9% 1,000 ML IV SCH (13:46)
[2020-02-03] MEDS: methylPREDNISolone SOD SUC 40 MG/1 ML VIAL IV SCH ×2 (15:03→21:30)
[2020-02-03] MEDS: cefTRIAXone 1,000 MG in SYRINGE 1 EACH IV SCH (15:03)
[2020-02-03] MEDS ORDERED: ENOXAPARIN 80 MG/0.8 ML SYRINGE SUBCUT SCH (18:00)
[2020-02-03] MEDS: INSULIN REGULAR 100 UNIT/ML SUBCUT SCH ×2 (18:54→21:30)
[2020-02-04 04:51] LABS: Basophils % 0.1 % (0.0-0.8); Hematocrit 38.5 VOL% (35.7-47.0); Immature Granulocytes % 1.8 %; Immature Granulocytes Absolute 0.19 #; Lymphocytes # 0.8 10*3/uL (1.4-4.0); Lymphocytes % 7.3 % (21.3-54.2); Mean Corpuscular Volume 89.1 FL (87-102); Mean Platelet Volume 11.1 FL (9.6-12.0); Monocytes % 2.4 % (1.7-12.7); Neutrophils % 88.4 % (38.7-73.9); Red Blood Count 4.32 MC/CUMM (3.8-5.5); Red Cell Distribution Width 13.1 % (9.3-17.3); White Blood Count 10.4 T/CUMM (4-12)
[2020-02-04 04:58] LABS: Hemoglobin 12.7 GM/DL (12.0-16.0)
[2020-02-04 04:59] LABS: Platelet Count 300 T/CUMM (130-400)
[2020-02-04 05:11] LABS: Calcium 8.3 MG/DL (8.5-10.1); Osmolality,Calculated 284.5 MOS/KG (273-304)
[2020-02-04] MEDS: methylPREDNISolone SOD SUC 40 MG/1 ML VIAL IV SCH ×3 (06:23→21:05)
[2020-02-04] MEDS: INSULIN REGULAR 100 UNIT/ML SUBCUT SCH ×4 (08:09→21:03)
[2020-02-04] MEDS ORDERED: DEXAMETHASONE 4 MG/1 ML VIAL IV SCH (09:00)
[2020-02-04] MEDS: ENOXAPARIN 40 MG/0.4 ML SYRINGE SUBCUT SCH (09:30)
[2020-02-04] MEDS ORDERED: FUROSEMIDE 40 MG/4 ML VIAL IV ONE (10:45)
[2020-02-04] MEDS: cefTRIAXone 1,000 MG in SYRINGE 1 EACH IV SCH (17:20)
[2020-02-04] MEDS: ATORVASTATIN 40 MG TABLET PO SCH (21:04)
[2020-02-04] MEDS: CLOPIDOGREL 75 MG TABLET PO SCH (21:04)
[2020-02-04] MEDS: BENZONATATE 100 MG CAPSULE PO SCH (21:05)
[2020-02-04] MEDS: ASCORBIC ACID 500 MG TABLET PO SCH (21:05)
[2020-02-05 05:54] LABS: Basophils % 0.1 % (0.0-0.8); Hematocrit 40.1 VOL% (35.7-47.0); Hemoglobin 13.3 GM/DL (12.0-16.0); Immature Granulocytes Absolute 0.12 #; Lymphocytes # 0.8 10*3/uL (1.4-4.0); Lymphocytes % 6.7 % (21.3-54.2); Mean Corpuscular HGB Conc 33.2 GM/DL (32-36); Mean Corpuscular Volume 89.5 FL (87-102); Mean Platelet Volume 11.2 FL (9.6-12.0); Monocytes % 2.3 % (1.7-12.7); Neutrophils % 89.9 % (38.7-73.9); Platelet Count 296 T/CUMM (130-400); Red Blood Count 4.48 MC/CUMM (3.8-5.5); Red Cell Distribution Width 13.1 % (9.3-17.3); White Blood Count 12.4 T/CUMM (4-12)
[2020-02-05 06:15] LABS: Calcium 8.5 MG/DL (8.5-10.1); Osmolality,Calculated 282.7 MOS/KG (273-304)
[2020-02-05 06:16] LABS: Calcium 8.2 MG/DL (8.5-10.1); Osmolality,Calculated 277.1 MOS/KG (273-304)
[2020-02-05] MEDS: methylPREDNISolone SOD SUC 40 MG/1 ML VIAL IV SCH ×2 (06:23→18:15)
[2020-02-05 06:24] LABS: Albumin 2.5 G/DL (3.4-5.0); Bilirubin,Total 1.4 MG/DL (0.2-1.0); Calcium 8.4 MG/DL (8.5-10.1); Ferritin 251.7 ng/ml (8-252); Osmolality,Calculated 280.8 MOS/KG (273-304); Total Protein 6.5 G/DL (6.4-8.3)
[2020-02-05] MEDS: ASCORBIC ACID 500 MG TABLET PO SCH ×2 (09:53→21:11)
[2020-02-05] MEDS: ASPIRIN CHEW 81 MG TABLET PO SCH (09:53)
[2020-02-05] MEDS: ARIPiprazole 10 MG TABLET PO SCH (09:53)
[2020-02-05] MEDS: CHOLECALCIFEROL 1,000 UNIT TABLET PO SCH (09:53)
[2020-02-05] MEDS: AZITHROMYCIN 250 MG TABLET PO SCH (09:54)
[2020-02-05] MEDS: sitaGLIPtin 100 MG TABLET PO SCH (09:54)
[2020-02-05] MEDS: ZINC SULFATE 220 MG CAPSULE PO SCH (09:54)
[2020-02-05] MEDS: CETIRIZINE 10 MG TABLET PO SCH (09:54)
[2020-02-05] MEDS: VENLAFAXINE XR 75 MG CAPSULE PO SCH (09:54)
[2020-02-05] MEDS: INSULIN REGULAR 100 UNIT/ML SUBCUT SCH ×4 (09:55→21:11)
[2020-02-05] MEDS: BENZONATATE 100 MG CAPSULE PO SCH ×2 (09:55→21:27)
[2020-02-05] MEDS: EMPAGLIFLOZIN PO SCH (09:55)
[2020-02-05] MEDS: ENOXAPARIN 40 MG/0.4 ML SYRINGE SUBCUT SCH (10:03)
[2020-02-05] MEDS: SODIUM CHLORIDE 0.9% 1,000 ML IV SCH (11:16)
[2020-02-05] MEDS: cefTRIAXone 1,000 MG in SYRINGE 1 EACH IV SCH (14:38)
[2020-02-05] MEDS: CLOPIDOGREL 75 MG TABLET PO SCH (21:11)
[2020-02-05] MEDS: ATORVASTATIN 40 MG TABLET PO SCH (21:11)
[2020-02-06] MEDS: methylPREDNISolone SOD SUC 40 MG/1 ML VIAL IV SCH ×2 (06:12→18:28)
[2020-02-06 06:51] LABS: Basophils % 0.1 % (0.0-0.8); Hematocrit 41.7 VOL% (35.7-47.0); Hemoglobin 13.6 GM/DL (12.0-16.0); Immature Granulocytes % 1.1 %; Immature Granulocytes Absolute 0.14 #; Lymphocytes % 8.2 % (21.3-54.2); Mean Corpuscular HGB Conc 32.6 GM/DL (32-36); Mean Corpuscular Volume 90.1 FL (87-102); Mean Platelet Volume 11.4 FL (9.6-12.0); Monocytes % 3.2 % (1.7-12.7); Neutrophils % 87.4 % (38.7-73.9); Platelet Count 280 T/CUMM (130-400); Red Blood Count 4.63 MC/CUMM (3.8-5.5); Red Cell Distribution Width 13.2 % (9.3-17.3); White Blood Count 12.3 T/CUMM (4-12)
[2020-02-06 07:02] LABS: Calcium 8.4 MG/DL (8.5-10.1); Osmolality,Calculated 277.8 MOS/KG (273-304)
[2020-02-06 07:08] LABS: Alanine Aminotransferase 34 U/L (13-56); Albumin 2.5 G/DL (3.4-5.0); Alkaline Phosphatase 76 U/L (45-117); Aspartate Amino Transferase 43 U/L (0-37); Blood Urea Nitrogen 25 MG/DL (7-18); Calcium 8.4 MG/DL (8.5-10.1); Estimated Glom Filtration Rate 93 ML/MIN; Ferritin 274.6 ng/ml (8-252); Glucose 119 MG/DL (74-106); Total Protein 6.4 G/DL (6.4-8.3)
[2020-02-06] MEDS: INSULIN REGULAR 100 UNIT/ML SUBCUT SCH ×4 (09:00→20:40)
[2020-02-06] MEDS: ZINC SULFATE 220 MG CAPSULE PO SCH (09:35)
[2020-02-06] MEDS: CETIRIZINE 10 MG TABLET PO SCH (09:35)
[2020-02-06] MEDS: ASCORBIC ACID 500 MG TABLET PO SCH ×2 (09:35→20:40)
[2020-02-06] MEDS: VENLAFAXINE XR 75 MG CAPSULE PO SCH (09:35)
[2020-02-06] MEDS: sitaGLIPtin 100 MG TABLET PO SCH (09:35)
[2020-02-06] MEDS: ASPIRIN CHEW 81 MG TABLET PO SCH (09:35)
[2020-02-06] MEDS: AZITHROMYCIN 250 MG TABLET PO SCH (09:35)
[2020-02-06] MEDS: ENOXAPARIN 40 MG/0.4 ML SYRINGE SUBCUT SCH (09:35)
[2020-02-06] MEDS: CHOLECALCIFEROL 1,000 UNIT TABLET PO SCH (09:35)
[2020-02-06] MEDS: ARIPiprazole 10 MG TABLET PO SCH (09:35)
[2020-02-06] MEDS: EMPAGLIFLOZIN PO SCH (11:00)
[2020-02-06] MEDS: BENZONATATE 100 MG CAPSULE PO SCH ×2 (11:01→22:54)
[2020-02-06] MEDS: cefTRIAXone 1,000 MG in SYRINGE 1 EACH IV SCH (13:18)
[2020-02-06] MEDS: CLOPIDOGREL 75 MG TABLET PO SCH (20:40)
[2020-02-06] MEDS: ATORVASTATIN 40 MG TABLET PO SCH (20:40)
[2020-02-07 05:25] LABS: Basophils % 0.2 % (0.0-0.8); Hemoglobin 14.1 GM/DL (12.0-16.0); Immature Granulocytes % 0.7 %; Immature Granulocytes Absolute 0.09 #; Lymphocytes # 0.8 10*3/uL (1.4-4.0); Lymphocytes % 6.4 % (21.3-54.2); Mean Corpuscular HGB Conc 33.6 GM/DL (32-36); Mean Corpuscular Volume 89.6 FL (87-102); Mean Platelet Volume 11.4 FL (9.6-12.0); Neutrophils % 89.7 % (38.7-73.9); Platelet Count 246 T/CUMM (130-400); Red Blood Count 4.69 MC/CUMM (3.8-5.5); Red Cell Distribution Width 13.2 % (9.3-17.3); White Blood Count 12.8 T/CUMM (4-12)
[2020-02-07 05:59] LABS: Calcium 8.4 MG/DL (8.5-10.1); Osmolality,Calculated 276.1 MOS/KG (273-304)
[2020-02-07 06:03] LABS: Alanine Aminotransferase 43 U/L (13-56); Albumin 2.6 G/DL (3.4-5.0); Alkaline Phosphatase 76 U/L (45-117); Aspartate Amino Transferase 42 U/L (0-37); Blood Urea Nitrogen 24 MG/DL (7-18); Calcium 8.3 MG/DL (8.5-10.1); Estimated Glom Filtration Rate 109 ML/MIN; Ferritin 259.7 ng/ml (8-252); Glucose 158 MG/DL (74-106); Osmolality,Calculated 274.2 MOS/KG (273-304); Total Protein 6.3 G/DL (6.4-8.3)
[2020-02-07] MEDS: methylPREDNISolone SOD SUC 40 MG/1 ML VIAL IV SCH (06:12)
[2020-02-07] MEDS: VENLAFAXINE XR 75 MG CAPSULE PO SCH (08:32)
[2020-02-07] MEDS: AZITHROMYCIN 250 MG TABLET PO SCH (08:32)
[2020-02-07] MEDS: ARIPiprazole 10 MG TABLET PO SCH (08:32)
[2020-02-07] MEDS: ZINC SULFATE 220 MG CAPSULE PO SCH (08:32)
[2020-02-07] MEDS: sitaGLIPtin 100 MG TABLET PO SCH (08:33)
[2020-02-07] MEDS: ASPIRIN CHEW 81 MG TABLET PO SCH (08:33)
[2020-02-07] MEDS: ASCORBIC ACID 500 MG TABLET PO SCH (08:33)
[2020-02-07] MEDS: CHOLECALCIFEROL 1,000 UNIT TABLET PO SCH (08:33)
[2020-02-07] MEDS: CETIRIZINE 10 MG TABLET PO SCH (08:33)
[2020-02-07] MEDS: BENZONATATE 100 MG CAPSULE PO SCH (10:06)
[2020-02-07] MEDS: EMPAGLIFLOZIN PO SCH (10:06)
[2020-02-07] MEDS: ENOXAPARIN 40 MG/0.4 ML SYRINGE SUBCUT SCH (10:06)
[2020-02-07] MEDS: INSULIN REGULAR 100 UNIT/ML SUBCUT SCH ×3 (10:07→12:05)
[2020-02-07 11:52] VITALS: BP 108/69
[2020-02-07] MEDS: cefTRIAXone 1,000 MG in SYRINGE 1 EACH IV SCH (13:39)
== END 2020-02-07 14:38 | disposition home or self-care (01) | DRG 193 ==
LOC: N.ED 09:45 → SUATTDRO 11:33 → N.EDINP 11:33 → N.2E 13:11
PROVIDERS: ADMIT Internal Medicine; ATTEND Family Medicine